=== PATIENT | female | born 1945 | race Caucasian/White ===

== ENCOUNTER 2018-08-30 07:14 | Day surgery (SDC) | payer MEDICARE, BC ==
[2018-08-27 15:19] VITALS: BMI 24.8
--- NOTE | 2018-08-30 10:04 | RAD ---
LUMBAR SPINE 2 VIEWS: HISTORY: M43.16, spondylolisthesis. COMPARISON: Lumbar spine radiographs from 2016. FINDINGS: Incomplete evaluation dorsal column stimulator. No acute fracture. In the neutral position, there is 5 mm L3 over L4 and 3 mm L4 on L5 anterolisthesis. No significant translation with flexion or extension. Mild dextroscoliosis of the thoracolumbar spine. Multilevel degenerative disk space height loss. Kathleen mbosacral transitional vertebrae. IMPRESSION: No significant translation with flexion or extension. POS: [facility]
--- NOTE | 2018-08-30 10:08 | RAD ---
EXAM: XR Myelogram Lumbar Spine PROVIDED CLINICAL HISTORY: Low back pain. Spondylolisthesis. Lumbar radiculopathy COMPARISON: None Fluoroscopy: Fluoroscopy time: 0.5 minutes, total dose: 43.82 microGy meter squared. TECHNIQUE: The procedure including the risks and complications were explained to the patient, and informed conse nt was obtained. The patient was placed on the fluoroscopy table in the prone position. An area overlying the L4-5 level was marked, and then the area was meticulously prepped and draped in usual s terile fashion. Skin and subcutaneous tissues were infiltrated with buffered 1% lidocaine for local anesthesia. A 22-gauge spinal needle was then advanced into the thecal sac. The inner stylette was removed with a return of clear cerebrospinal fluid. Approximately 8 mL of Isovue m-200 was then instilled into the thecal sac. The inner stylette was replaced, and the needle was removed. Patient was transported to CT for CT scan of the lumbar spine post myelogram. A dry sterile dressing was placed at puncture site. The patient tolerated the procedure well and without immediate complication. IMPRESSION: Technically successful lumbar myelogram with puncture at the L4-5 level.
--- NOTE | 2018-08-30 11:24 | CT ---
CT lumbar spine post myelogram: HISTORY: Low back pain and radiculopathy. Degenerative disc disease. History of prior lumbar surgery. COMPARISON: CT post myelogram on 07/24/2014 FINDINGS: There is an incompletely imaged large hypodense lesion inferior pole left kidney. Where visualized, t his hypodense cystic lesion measures 5.7 cm. This hypodense lesion was visualized on prior study in 2015 but is larger in size on today's examination. Measurement obtained on prior exam was 4.6 cm. Whi le this does demonstrate fluid attenuation on unenhanced imaging, this is incompletely imaged for adequate evaluation. Postcholecystectomy changes are noted. Vascular calcifications are seen in the abdominal aorta and involving the iliac arteries. A dorsal column stimulator device is again noted in place entering the thecal sac at the T12-L1 and L 1-2 levels. The tip of the dorsal column stimulator lead is at the level of the T10 vertebral body. Conus medullaris terminates at the T12-L1 level. Laminectomy defects are now present extending from the L3-3-2 body of the L5-S1 level. Grade 1 anterolisthesis of L3 on L4 and L4 on L5 is again present with degrees of listhesis each brennan uring approximately 3 mm. The vertebral body heights are within normal limits. Vacuum phenomenon is seen in the L2-3, L3-4, and L4-5 intervertebral disc with loss of intervertebral disc height at these levels. L1-2: Facet hypertrophic changes are present at this level. This does result in mild mass effect on t he posterior lateral aspect of the thecal sac greater on the left. No significant disc bulge or disc herniation is present. Neural foramina are patent. L2-3: There is a disc osteophyte complex present with mild extrusion of disc material superiorly and inferiorly. Facet hypertrophic changes are present at this level. Findings result in moderate narrowing of the central spinal canal. The right neural foramen is patent, but there is moderate to s evere left-sided neural foraminal narrowing primarily related to disc osteophyte complex laterally. Findings at this level have progressed from prior exam in 2015. L3-4: There is prominent loss of intervertebral disc height. There is grade 1 anterolisthesis at this level with disc osteophyte complex present which is not significantly changed when compared to the prior study. This results in mild flattening of the anterior aspect of the thecal sac. There is moder ate bilateral neural foraminal narrowing. Laminectomy defect is seen posteriorly with low-density material seen posterior laminectomy defect probably to mild scarring. L4-5: Laminectomy defect is present at this level. There is a mild disc osteophyte complex similar to the prior exam. The degree of central canal narrowing is less pronounced. There is moderate bilateral neural foraminal narrowing greater on the right. There is focal enlargement of the right L4 nerve root in the subarticular zone just prior to exiting the thecal sac. L5-S1: Laminectomy defect is seen posteriorly. Central spinal canal and left neural foramen are paten t. There is mild right-sided neural foraminal narrowing. IMPRESSION: 1. Postsurgical and degenerative changes of the lumbar spine. 2. Disc osteophyte complex resulting in moderate narrowing of the central spinal canal at the L2-3 le tisha which has progressed when compared to the prior exam. In addition, there is moderate to severe left-sided neural foraminal narrowing. 3. Moderate bilateral neural foraminal narrowing at the L3-4 and L4-5 levels. 4. Focal enlargement of the right L4 nerve root in the subarticular zone on the right. 5. Incompletely imaged cystic lesion inferior pole left kidney which is larger in size compared to [facility] in 2015. This probably represents enlargement of a renal cyst, but follow-up renal sonogram is recommended due to incomplete visualization.
== END 2018-08-30 10:20 | disposition home or self-care (01) ==
LOC: RAD 07:14
PROVIDERS: ATTEND Specialist
DX: M48.061 Spinal stenosis, lumbar region without neurogenic claudication (principal); M48.07 Spinal stenosis, lumbosacral region; M47.26 Other spondylosis with radiculopathy, lumbar region; M43.16 Spondylolisthesis, lumbar region; M51.16 Intervertebral disc disorders with radiculopathy, lumbar region; M96.1 Postlaminectomy syndrome, not elsewhere classified; M46.1 Sacroiliitis, not elsewhere classified; N28.1 Cyst of kidney, acquired; I10 Essential (primary) hypertension; M06.9 Rheumatoid arthritis, unspecified; Z98.890 Other specified postprocedural states; Z88.6 Allergy status to analgesic agent; Z88.8 Allergy status to other drugs, medicaments and biological substances; Z88.5 Allergy status to narcotic agent; Z79.82 Long term (current) use of aspirin; Z79.1 Long term (current) use of non-steroidal anti-inflammatories (NSAID); Z79.899 Other long term (current) drug therapy
CPT/HCPCS: 62304; 72100; 72132

== ENCOUNTER 2019-04-07 13:42 | Outpatient (CLI) | payer MEDICARE, BC ==
--- NOTE | 2019-04-07 14:44 | RAD ---
LEFT HIP 2 VIEWS: HISTORY: Post laminectomy syndrome. Left hip pain. FINDINGS: Very mild degenerative change at the femoral head. Femoral head contour is normal. No fracture. No acute osseous abnormality. IMPRESSION: Minimal degenerative change at the left hip. No acute finding. POS: [facility]
== END 2019-04-07 13:43 | disposition home or self-care (01) ==
LOC: RAD 13:42
PROVIDERS: ATTEND Nurse Practitioner Family
DX: M25.552 Pain in left hip (principal); M96.1 Postlaminectomy syndrome, not elsewhere classified; M16.12 Unilateral primary osteoarthritis, left hip

== ENCOUNTER 2019-09-02 06:50 | Outpatient (CLI) | payer MEDICARE, BC, OTHER ==
[2019-09-03 11:34] LABS: SARS-CoV-2 MS2 Positive; SARS-CoV-2 N Gene Negative; SARS-CoV-2 S Gene Negative; SARS-CoV-2 orf1ab Negative
== END 2019-09-02 06:51 | disposition home or self-care (01) ==
LOC: LABBT 06:50
PROVIDERS: ATTEND Specialist
DX: Z01.812 Encounter for preprocedural laboratory examination (principal); Z11.59 Encounter for screening for other viral diseases; M96.1 Postlaminectomy syndrome, not elsewhere classified; M51.16 Intervertebral disc disorders with radiculopathy, lumbar region; G89.29 Other chronic pain
CPT/HCPCS: 87635; U0003

== ENCOUNTER 2019-09-06 12:01 | Day surgery (SDC) | payer MEDICARE, BC ==
[2019-09-01 10:34] VITALS: BMI 23.0
[~2019-09-06 12:01] MED LIST: EPHEDRINE 25 MG/5 ML SYRINGE ONE; PROPOFOL 200 MG/20 ML VIAL ONE
[2019-09-06] MEDS ORDERED: Sodium Chloride 0.9% 100 ML ONE (13:03)
[2019-09-06] MEDS ORDERED: CEFAZOLIN 1 GM VIAL ONE (13:03)
[2019-09-06] MEDS ORDERED: Lidocaine 1% w/Epinephrine 1:100K 20 ML VIAL ONE (14:36)
[2019-09-06] MEDS ORDERED: Bupivacaine PF 0.5% 30 ML VIAL ONE (14:36)
[2019-09-06] MEDS ORDERED: Propofol 500 MG/50 ML VIAL ONE (14:41)
[2019-09-06] MEDS ORDERED: Fentanyl 100 MCG/2 ML VIAL ONE (14:41)
[2019-09-06] MEDS ORDERED: Midazolam HCl 2 mg/2 ml Vial ONE ×2 (14:52→15:08)
[2019-09-06] MEDS ORDERED: Morphine 10 MG/ML VIAL ONE (15:08)
[2019-09-06] MEDS ORDERED: Sodium Chloride 0.9% 20 ML ONE (15:52)
--- NOTE | 2019-09-06 17:04 | RAD ---
THORACIC SPINE TWO VIEWS: 09/06/19 HISTORY: Dorsal column stimulator placement. FINDINGS/IMPRESSION: Flour spot fluoroscopic intraoperative images of the thoracic spine demonstrates placement of dorsal column stimulator leads superiorly most likely at T9 and T10 levels. POS: [facility]
--- NOTE | 2019-09-07 08:03 | OP ---
DATE OF PROCEDURE: 09/06/2019 PREOPERATIVE DIAGNOSES: 1. Post-laminectomy syndrome. 2. Chronic pain syndrome. 3. Lumbar radiculopathy. POSTOPERATIVE DIAGNOSES: 1. Post-laminectomy syndrome. 2. Chronic pain syndrome. 3. Lumbar radiculopathy. PROCEDURES PERFORMED: 1. SCS generator replacement. 2. SCS lead replacement x2. SPECIMENS REMOVED: 1. SCS generator, intact, Nevro. 2. SCS leads x2, intact. 3. SCS anchors x2, intact. ESTIMATED BLOOD LOSS: Minimal. DESCRIPTION OF PROCEDURE: The patient was taken to the procedure room and placed prone on the procedure room table. A time-out was performed. The back was prepped with ChloraPrep, and sterile drapes were applied. We used fluoroscopy to locate the existing anchors. We then anesthetized the skin with 0.5% Marcaine and made a vertical incision over the existing incision to expose the anchors. This was blunt dissected out. Scar tissue was removed. The anchors were released from the fascia, and the leads were pulled out of the epidural space intact. We then used the Marcaine to anesthetize the existing pocket scar. We made an incision and blunt dissected this down to the pocket. The battery was removed. The leads were disconnected and pulled through and discarded. The battery was also removed. Anchors were also removed. At this point, we cauterized the existing pocket and collapsed it using Vicryl suture. We blunt dissected this down the Suzan fascia approximately 1 cm deep. We then dissected this inferior and superior to form a new pocket. We used Surgicel for anticoagulation. The 14-gauge supplied Touhy needle was used in the vertical incision at a paramedian technique to engage into the T12-L1 ligament. Loss of resistance to air was used to achieve access to the epidural space. The 8-contact electrode was then inserted into the epidural space and threaded up the epidural space using live fluoroscopy. The middle lead was placed at the top of T8. We then performed the same exact technique on the contralateral side and threaded an 8-contact lead up on the left side of the midline lead to the top of T9. Stimulation was performed with the patient awake and the patient noted paresthesia in all pain areas. We then removed the needle taking care not to move the leads. Anchors were placed over these leads, and 2-0 silk suture was used to fixate the anchors to fascia. We tugged on these leads under live fluoroscopy and they were not moving. We used a tunneling device to make a tunnel between the 2 pockets. Leads were inserted through this tunnel and brought to the battery pocket. These were connected to the battery and torqued down to fixate them to the battery. Impedances were checked, which were all good. The battery was slipped into the pocket. We used 2-0 Vicryl sutures in a horizontal mattress to approximate the deep fascial layer. We then used 2-0 Vicryl suture in an interrupted fashion to approximate the superficial fascial layer and then used 3-0 Rapide as a subcuticular stitch on the skin layer. We then used Dermabond as an occlusive dressing, then once that was dry, we put sterile 4x4s on top and Medipore tape. The patient was taken to Day Stay under stable condition without any apparent complications noted at this time. Job ID: [id number]
== END 2019-09-06 18:15 | disposition home or self-care (01) ==
LOC: SDC 12:01
PROVIDERS: ATTEND Specialist
PROC: 0JPT0MZ Removal of Stimulator Generator from Trunk Subcutaneous Tissue and Fascia, Open Approach (ICD-10-PCS; principal; 2019-09-06)
PROC: 0JH70DZ Insertion of Multiple Array Stimulator Generator into Back Subcutaneous Tissue and Fascia, Open Approach (ICD-10-PCS; 2019-09-06)
PROC: 00WU3MZ Revision of Neurostimulator Lead in Spinal Canal, Percutaneous Approach (ICD-10-PCS; 2019-09-06)
DX: M96.1 Postlaminectomy syndrome, not elsewhere classified (principal); G89.4 Chronic pain syndrome; M54.16 Radiculopathy, lumbar region; I10 Essential (primary) hypertension; E03.9 Hypothyroidism, unspecified; K21.9 Gastro-esophageal reflux disease without esophagitis; G47.30 Sleep apnea, unspecified; G43.909 Migraine, unspecified, not intractable, without status migrainosus; F17.210 Nicotine dependence, cigarettes, uncomplicated; F32.9 Major depressive disorder, single episode, unspecified; Z79.52 Long term (current) use of systemic steroids; Z79.82 Long term (current) use of aspirin; Z79.899 Other long term (current) drug therapy; Z88.5 Allergy status to narcotic agent; Z88.8 Allergy status to other drugs, medicaments and biological substances
CPT/HCPCS: 72070; 76000; J0690; J2250; J2270; J2704; J3010; J3490; L8679; S0020

== ENCOUNTER 2020-01-26 07:05 | Outpatient (CLI) | payer MEDICARE, BC ==
[2020-01-26 16:19] LABS: Hemoglobin 12.9 g/dL (12.0-16.0); Mean Corpuscular HGB CONC 33.7 G/DL (32.0-36.0); Mean Corpuscular Hemoglobin 35.7 PG (27.0-33.0); Mean Corpuscular Volume 106.1 fl (80.0-100.0); Mean Platelet Volume 9.8 fl (7.4-10.4); Platelet Count 207 10x3/uL (130-400); RBC Distribution Width 14.9 % (11.5-14.5); Red Blood Cell (RBC) Count 3.61 10x6/uL (3.90-5.20); White Blood Cell (WBC) Count 10.9 10x3/uL (4.5-11.0)
[2020-01-26 17:50] LABS: Anion Gap 13 mmol/L (10-20); BUN (Urea Nitrogen) 22 mg/dL (9.8-20.1); Calc. Creatinine Clearance 0 mL/min (70-130); Calcium 9.1 mg/dL (7.8-10.44); Carbon Dioxide 27 mmol/L (23-31); Chloride 101 mmol/L (98-107); Estimated GFR-MDRD 68; Glucose 121 mg/dL (83-110); Potassium 4.3 mmol/L (3.5-5.1); Sodium 137 mmol/L (136-145)
[2020-01-26 19:13] LABS: PTT 24.5 sec (22.0-33.0); Prothrombin Time 10.7 sec (9.5-12.1)
[2020-01-27 14:36] LABS: SARS-CoV-2 MS2 Positive; SARS-CoV-2 N Gene Negative; SARS-CoV-2 S Gene Negative; SARS-CoV-2 by NAA Not Detected (NotDetected); SARS-CoV-2 orf1ab Negative
--- NOTE | 2020-01-31 06:55 | EKG ---
Test Reason : PREOP Blood Pressure : / mmHG Vent. Rate : 062 BPM Atrial Rate : 062 BPM P-R Int : 160 ms QRS Dur : 108 ms QT Int : 382 ms P-R-T Axes : 068 020 046 degrees QTc Int : 387 ms Normal sinus rhythm Right bundle branch block Abnormal ECG No previous ECGs available Confirmed by DIXON OVIEDO MD ([id number]) on 01/31/2020 6:55:00 AM Referred By: NUHA Confirmed By:DIXON OVIEDO MD
== END 2020-01-26 07:06 | disposition home or self-care (01) ==
LOC: LABBT 07:05
PROVIDERS: ATTEND Surgery
DX: Z01.818 Encounter for other preprocedural examination (principal); M51.16 Intervertebral disc disorders with radiculopathy, lumbar region; Z20.828 Contact with and (suspected) exposure to other viral communicable diseases
CPT/HCPCS: 80048; 85027; 85610; 85730; 93005; U0003; 87635; 93010

== ENCOUNTER 2020-01-31 08:05 | Day surgery (SDC) | payer MEDICARE, BC ==
[2020-01-30 15:09] VITALS: BMI 22.8
[2020-01-31] MEDS ORDERED: Fentanyl 100 MCG/2 ML VIAL ONE (09:00)
[2020-01-31] MEDS ORDERED: Thrombin 5000 UNITS/5 ML VIAL ONE (09:18)
[2020-01-31] MEDS ORDERED: HYDROmorphone 2 MG/ML VIAL ONE (09:23)
[2020-01-31] MEDS ORDERED: ePHEDrine 50 MG/ML VIAL ONE (10:35)
[2020-01-31] MEDS ORDERED: PHENYLEPHRINE-NS 100 MCG/ML 10 ML SYRINGE ONE (10:35)
[2020-01-31] MEDS ORDERED: Ondansetron PF 4 MG/2 ML Vial ONE (10:35)
[2020-01-31] MEDS ORDERED: Rocuronium Bromide 10 MG/ML (10ML VIAL) ONE (10:35)
[2020-01-31] MEDS ORDERED: Glycopyrrolate 0.2 MG/ML 5 ML SYRINGE ONE (10:35)
[2020-01-31] MEDS ORDERED: Lidocaine 1% PF 5 ML VIAL ONE (10:35)
[2020-01-31] MEDS ORDERED: PROPOFOL 200 MG/20 ML VIAL ONE (10:35)
[2020-01-31] MEDS ORDERED: Bisacodyl 10 MG SUPP PR PRN (11:28)
[2020-01-31] MEDS ORDERED: tiZANidine HCl 4 MG TAB PO PRN (11:28)
[2020-01-31] MEDS ORDERED: Ondansetron PF 4 MG/2 ML Vial IVP PRN (11:28)
[2020-01-31] MEDS ORDERED: Morphine 2 MG/ML VIAL SLOW IVP PRN (11:28)
[2020-01-31] MEDS ORDERED: Acetaminophen 325 MG TAB PO PRN (11:28)
[2020-01-31] MEDS ORDERED: Acetaminophen/Codeine 30-300mg Tablet PO PRN (11:28)
[2020-01-31] MEDS ORDERED: Mag-Al 1200 mg/1200 mg/30 ML UDCUP PO PRN (11:28)
[2020-01-31] MEDS ORDERED: traMADol HCl 50 MG TAB PO PRN (11:28)
[2020-01-31] MEDS ORDERED: HYDROcodone/Acetaminophen 7.5/325 mg Tablet PO PRN (11:28)
[2020-01-31] MEDS ORDERED: Milk Of Magnesia 30 ML UDCUP PO PRN (11:28)
[2020-01-31] MEDS ORDERED: HYPROMELLOSE R EYE PRN (11:30)
[2020-01-31] MEDS ORDERED: Loperamide HCl 2 MG CAP PO PRN (11:30)
[2020-01-31] MEDS ORDERED: [UNRECOGNIZED DRUG - OTHER] R EYE SCH (11:30)
[2020-01-31] MEDS ORDERED: DEXTRAN R EYE PRN (11:30)
[2020-01-31] MEDS ORDERED: [UNRECOGNIZED DRUG - OTHER] R EYE PRN (11:30)
[2020-01-31] MEDS ORDERED: PEG R EYE SCH (11:30)
[2020-01-31] MEDS ORDERED: CARBOXYMETHYLCELLULOSE SODIUM R EYE PRN (11:30)
[2020-01-31] MEDS ORDERED: Sodium Chloride 0.9% 1,000 ML IV SCH (11:30)
[2020-01-31] MEDS ORDERED: Furosemide 20 MG TAB PO PRN (11:30)
[2020-01-31] MEDS ORDERED: PROPYLENE GLYCOL R EYE SCH (11:30)
[2020-01-31] MEDS ORDERED: HYDROmorphone 0.5 MG/0.5 ML SYRINGE ONE (11:54)
[2020-01-31] MEDS ORDERED: Gabapentin 400 MG CAP PO SCH (13:00)
[2020-01-31] MEDS ORDERED: tiZANidine HCl 4 MG TAB ONE (13:32)
[2020-01-31] MEDS ORDERED: Hydrocodone-Acetamin 15 ML UDCUP ONE (13:33)
[2020-01-31] MEDS ORDERED: CEFAZOLIN 2 GM in Premix Bag 1 BAG IVPB SCH (17:00)
[2020-01-31] MEDS ORDERED: Atorvastatin Calcium 10 MG TAB PO SCH (21:00)
[2020-01-31] MEDS ORDERED: Multivit, Therapeutic 1 TAB PO SCH (21:00)
[2020-01-31] MEDS ORDERED: guaiFENesin ER 600 MG TAB PO SCH (21:00)
[2020-01-31] MEDS ORDERED: Estradiol 1 MG TAB PO SCH (21:00)
--- NOTE | 2020-02-01 05:39 | OP ---
DATE OF PROCEDURE: 01/31/2020 LOCATION: OR 11. TRAFFIC COUNTER: Melissa Kaminski PA-C PREPROCEDURE DIAGNOSIS: Low back and left leg pain with left L2 and left L3 radiculopathy with lateral and far-lateral disk extrusion. POSTPROCEDURE DIAGNOSIS: Low back and left leg pain with left L2 and left L3 radiculopathy with lateral and far-lateral disk extrusion. PROCEDURES PERFORMED: 1. Left L2-L3 revision hemilaminotomy and foraminotomy with decompression of the traversing left L3 nerve root. 2. Left L2-L3 trans-facet diskectomy for lateral and far-lateral diskectomy. 3. Decompression of the exiting left L2 nerve root. 4. Use of operative microscope for microdissection. DESCRIPTION OF PROCEDURE: After informed consent was obtained from the patient, the patient was brought to the OR. Proper patient, pause, and identification were carried out. She was placed under excellent general endotracheal anesthesia and positioned prone on the OR table. The prior L2-L3 wound was identified. This area was sterilely cleansed, prepared, and draped. Proper patient, pause, and identification were carried out. The wound was then opened with combination of sharp, monopolar, and blunt dissection. We then proceeded to identify the left L2-L3 facet complex, the left L2 pars, and the right L3 pedicle. Localization film confirmed our area of interest. We then performed with the use of the operative microscope a revision left L2-L3 hemilaminotomy and foraminotomy with decompression of traversing left L3 nerve root. I then turned my attention to the exiting left L2 nerve root and lateral and far-lateral disk material was identified and removed in its entirety for complete decompression of the exiting left L2 nerve root and its foramen and extraforaminally. Copious irrigation occurred throughout as did maximizing hemostasis. The wound was then closed in anatomic layers following sprinkling of vancomycin powder. The patient then emerged from anesthesia and it was careful to protect spinal cord stimulator leads. Job ID: [id number]
[2020-02-01] MEDS ORDERED: Levothyroxine Sodium 75 MCG TAB PO SCH (06:00)
[2020-02-01] MEDS ORDERED: Lisinopril/Hydrochlorothiazide 20/25 mg Tablet PO SCH (09:00)
[2020-02-01] MEDS ORDERED: [UNRECOGNIZED DRUG - OTHER] PO SCH (09:00)
[2020-02-01] MEDS ORDERED: predniSONE 5 MG TAB PO SCH (09:00)
[2020-02-01] MEDS ORDERED: Nebivolol HCl 5 MG TAB PO SCH (09:00)
[2020-02-01] MEDS ORDERED: Calcium Carbonate 600 MG + Vit D TAB PO SCH (09:00)
[2020-02-01] MEDS ORDERED: Ascorbic Acid 500 mg Chewable Tablet PO SCH (09:00)
[2020-02-01] MEDS ORDERED: Folic Acid 1 MG TAB PO SCH (09:00)
[2020-02-01] MEDS ORDERED: FLUoxetine HCl 20 MG CAP PO SCH (09:00)
[2020-02-01] MEDS ORDERED: Potassium Chloride 20 MEQ TAB PO SCH (09:00)
[2020-02-01] MEDS ORDERED: Cholecalciferol 1,000 UNITS (25 MCG) TAB PO SCH (09:00)
[2020-02-01] MEDS ORDERED: HYDROCODONE BITARTRATE 40 MG PO SCH (09:00)
== END 2020-01-31 16:25 | disposition home or self-care (01) ==
LOC: SDC 08:05
PROVIDERS: ATTEND Surgery
PROC: 01NB0ZZ Release Lumbar Nerve, Open Approach (ICD-10-PCS; principal; 2020-01-31)
DX: M51.16 Intervertebral disc disorders with radiculopathy, lumbar region (principal); G47.33 Obstructive sleep apnea (adult) (pediatric); I10 Essential (primary) hypertension; E03.9 Hypothyroidism, unspecified; K21.9 Gastro-esophageal reflux disease without esophagitis; Z79.82 Long term (current) use of aspirin; Z79.899 Other long term (current) drug therapy; Z88.8 Allergy status to other drugs, medicaments and biological substances
CPT/HCPCS: 36416; 76000; J0690; J1170; J2405; J2704; J3010; J3370; J3490

== ENCOUNTER 2021-03-22 08:38 | Outpatient (CLI) | payer MEDICARE, BC | END 2021-03-22 08:39 | disposition home or self-care (01) | LOC: CT 08:38 | PROVIDERS: ATTEND Surgery | DX: M47.26 Other spondylosis with radiculopathy, lumbar region (principal); M41.9 Scoliosis, unspecified; Z98.890 Other specified postprocedural states | CPT/HCPCS: 72110; 72131 ==

== ENCOUNTER 2021-04-25 09:53 | Outpatient (CLI) | payer MEDICARE, BC ==
[2021-04-25 11:30] LABS: Mean Corpuscular HGB CONC 31.9 g/dL (32.0-36.0); Mean Corpuscular Hemoglobin 34.2 pg (27.0-33.0); Mean Corpuscular Volume 107.4 fl (81.6-98.3); Mean Platelet Volume 9.6 fl (7.4-10.4); Platelet Count 216 10x3/uL (150-450); RBC Distribution Width 14.5 % (11.5-14.5); White Blood Cell (WBC) Count 12.4 10x3/uL (3.5-10.5)
[2021-04-25 11:38] LABS: PTT 22.7 sec (22.0-33.0); Prothrombin Time 10.8 sec (9.5-12.1)
[2021-04-25 11:44] LABS: Anion Gap 13 mmol/L (10-20); BUN (Urea Nitrogen) 22 mg/dL (9.8-20.1); Calc. Creatinine Clearance 0 mL/min (70-130); Calcium 9.5 mg/dL (7.8-10.44); Carbon Dioxide 30 mmol/L (23-31); Chloride 103 mmol/L (98-107); Glucose 103 mg/dL (83-110); Potassium 3.8 mmol/L (3.5-5.1); Sodium 142 mmol/L (136-145)
[2021-04-25 16:48] LABS: SARS-CoV-2 PCR by NAA Not Detected (NotDetected)
== END 2021-04-25 09:54 | disposition home or self-care (01) ==
LOC: LABBT 09:53
PROVIDERS: ATTEND Surgery
DX: Z01.818 Encounter for other preprocedural examination (principal); M48.062 Spinal stenosis, lumbar region with neurogenic claudication; M54.16 Radiculopathy, lumbar region; M41.9 Scoliosis, unspecified; Z20.822 Contact with and (suspected) exposure to COVID-19
CPT/HCPCS: 80048; 85027; 85610; 85730; 86850; 86900; 86901; 93005; U0003; U0005; 93010

== ENCOUNTER 2021-04-30 07:55 | Inpatient (IN) | payer MEDICARE, BC ==
[2021-04-24 15:36] VITALS: BMI 24.7
[2021-04-25 11:30] LABS: Mean Corpuscular HGB CONC 31.9 g/dL (32.0-36.0); Mean Corpuscular Hemoglobin 34.2 pg (27.0-33.0); Mean Corpuscular Volume 107.4 fl (81.6-98.3); Mean Platelet Volume 9.6 fl (7.4-10.4); Platelet Count 216 10x3/uL (150-450); RBC Distribution Width 14.5 % (11.5-14.5); White Blood Cell (WBC) Count 12.4 10x3/uL (3.5-10.5)
[2021-04-25 11:38] LABS: PTT 22.7 sec (22.0-33.0); Prothrombin Time 10.8 sec (9.5-12.1)
[2021-04-25 11:44] LABS: Anion Gap 13 mmol/L (10-20); BUN (Urea Nitrogen) 22 mg/dL (9.8-20.1); Calc. Creatinine Clearance 0 mL/min (70-130); Calcium 9.5 mg/dL (7.8-10.44); Carbon Dioxide 30 mmol/L (23-31); Chloride 103 mmol/L (98-107); Glucose 103 mg/dL (83-110); Potassium 3.8 mmol/L (3.5-5.1); Sodium 142 mmol/L (136-145)
[2021-04-25 16:48] LABS: SARS-CoV-2 PCR by NAA Not Detected (NotDetected)
[2021-04-30] MEDS ORDERED: Thrombin 5000 UNITS/5 ML VIAL ONE ×2 (09:42→13:47)
[2021-04-30] MEDS ORDERED: Famotidine/PF 20 mg/2ml Vial ONE (09:53)
[2021-04-30] MEDS ORDERED: Fentanyl 250 MCG/5 ML VIAL ONE (10:08)
[2021-04-30] MEDS ORDERED: Rocuronium Bromide 10 MG/ML (10ML VIAL) ONE (10:25)
[2021-04-30] MEDS ORDERED: PROPOFOL 200 MG/20 ML VIAL ONE (10:25)
[2021-04-30] MEDS ORDERED: Lidocaine 1% PF 5 ML VIAL ONE (10:25)
[2021-04-30] MEDS ORDERED: ePHEDrine 50 MG/ML VIAL ONE (10:25)
[2021-04-30] MEDS ORDERED: Ondansetron PF 4 MG/2 ML Vial ONE (10:25)
[2021-04-30] MEDS ORDERED: PHENYLEPHRINE-NS 100 MCG/ML 10 ML SYRINGE ONE (10:25)
[2021-04-30] MEDS ORDERED: Morphine Sulfate 2 MG/ML SYRINGE SLOW IVP PRN (12:52)
[2021-04-30] MEDS ORDERED: Promethazine HCl 25 MG/ML VIAL IM PRN (12:52)
[2021-04-30] MEDS ORDERED: Promethazine HCl 25 MG/ML VIAL IVPB PRN (12:52)
[2021-04-30] MEDS ORDERED: Ondansetron HCl/PF 4 MG/2 ML Vial IVP PRN (12:52)
[2021-04-30] MEDS ORDERED: PACU-Morphine 4MG/ML VIAL SLOW IVP PRN (12:52)
[2021-04-30] MEDS ORDERED: SUGAMMADEX SODIUM 200 MG/2 ML VIAL ONE (13:36)
[2021-04-30] MEDS ORDERED: CEFAZOLIN 1 GM VIAL ONE (14:24)
[2021-04-30] MEDS ORDERED: Morphine 10 MG/ML VIAL ONE ×2 (14:28→15:06)
[2021-04-30] MEDS ORDERED: traMADol HCl 50 MG TAB PO PRN (15:11)
[2021-04-30] MEDS ORDERED: Acetaminophen/Codeine 30-300mg Tablet PO PRN (15:11)
[2021-04-30] MEDS ORDERED: HYDROcodone/Acetaminophen 7.5/325 mg Tablet PO PRN (15:11)
[2021-04-30] MEDS ORDERED: tiZANidine HCl 4 MG TAB PO PRN (15:25)
[2021-04-30] MEDS ORDERED: Loperamide HCl 2 MG CAP PO PRN (15:27)
[2021-04-30] MEDS ORDERED: [UNRECOGNIZED DRUG - OTHER] EA EYE PRN (15:27)
[2021-04-30] MEDS ORDERED: DEXTRAN EA EYE PRN (15:27)
[2021-04-30] MEDS ORDERED: HYPROMELLOSE EA EYE PRN (15:27)
[2021-04-30] MEDS ORDERED: hydrALAZINE 20 MG/ML VIAL SLOW IVP PRN (15:38)
[2021-04-30] MEDS ORDERED: Morphine 4 MG/ML VIAL ONE (15:39)
[2021-04-30] MEDS ORDERED: Morphine 4 MG/ML VIAL SLOW IVP PRN (16:09)
[2021-04-30] MEDS ORDERED: Artificial Tear Sol 15 ML BOT EA EYE PRN (16:11)
[2021-04-30] MEDS ORDERED: Polyethylene Glycol OPTH DROP 15 ML BOT EA EYE PRN (16:30)
[2021-04-30 16:42] LABS: Hemoglobin 10.8 g/dL (12.0-16.0)
[2021-04-30] MEDS: CEFAZOLIN 2 GM, Admixture Fee 1 EACH in Sodium Chloride 0.9% 100 ML IVPB SCH (18:00)
[2021-04-30] MEDS: Gabapentin 400 MG CAP PO SCH ×2 (18:04→20:47)
[2021-04-30] MEDS: Sodium Chloride 0.9% 1,000 ML IV SCH (19:04)
[2021-04-30] MEDS: Atorvastatin Calcium 10 MG TAB PO SCH (20:46)
[2021-04-30] MEDS: Estradiol 1 MG TAB PO SCH (20:46)
[2021-04-30] MEDS: Multivit, Therapeutic 1 TAB PO SCH (20:47)
[2021-04-30] MEDS: HYDROcodone/Acetaminophen 10/325 mg Tablet PO PRN (20:47)
[2021-04-30] MEDS: guaiFENesin ER 600 MG TAB PO SCH (20:47)
[2021-05-01] MEDS: CEFAZOLIN 2 GM, Admixture Fee 1 EACH in Sodium Chloride 0.9% 100 ML IVPB SCH ×3 (01:30→17:13)
[2021-05-01] MEDS: Sodium Chloride 0.9% 1,000 ML IV SCH ×2 (01:34→20:25)
[2021-05-01] MEDS: Levothyroxine Sodium 75 MCG TAB PO SCH (05:18)
[2021-05-01] MEDS: HYDROcodone/Acetaminophen 10/325 mg Tablet PO PRN ×2 (05:18→15:50)
[2021-05-01 05:25] LABS: #Basophils 0.1 thou/uL (0.0-0.2); #Eosinphils 0.2 thou/uL (0.0-0.7); #Lymphocytes 4.9 thou/uL (1.20-3.40); #Monocytes 1.1 thou/uL (0.11-0.59); #Neutrophils 5.8 thou/uL (1.40-6.50); %Basophils 0.7 % (0.0-1.0); %Eosinophils 1.3 % (0.0-10.0); %Lymphocytes 40.6 % (21.0-51.0); %Monocytes 9.1 % (0.0-10.0); %Neutrophils 48.3 % (42.0-75.0); Hemoglobin 9.8 g/dL (12.0-16.0); Mean Corpuscular HGB CONC 32.2 g/dL (32.0-36.0); Mean Corpuscular Hemoglobin 35.6 pg (27.0-31.0); Platelet Count 173 thou/uL (130-400); RBC Distribution Width 14.1 % (11.5-14.5); Red Blood Cell (RBC) Count 2.75 mill/uL (4.20-5.40); White Blood Cell (WBC) Count 12.1 thou/uL (4.8-10.8)
[2021-05-01 06:03] LABS: Anion Gap 12 mmol/L (10-20); BUN (Urea Nitrogen) 11 mg/dL (9.8-20.1); Calc. Creatinine Clearance 54 mL/min (70-130); Calcium 8.5 mg/dL (7.8-10.44); Carbon Dioxide 28 mmol/L (23-31); Chloride 101 mmol/L (98-107); Glucose 110 mg/dL (83-110); Potassium 3.1 mmol/L (3.5-5.1); Sodium 138 mmol/L (136-145)
[2021-05-01] MEDS ORDERED: Furosemide 20 MG TAB PO PRN (09:00)
[2021-05-01] MEDS ORDERED: Morphine ER 30 MG TAB PO SCH (09:22)
[2021-05-01] MEDS: FLUoxetine HCl 20 MG CAP PO SCH (09:23)
[2021-05-01] MEDS: Potassium Bicarbonate/Cit Ac 20 MEQ TAB PO SCH (09:23)
[2021-05-01] MEDS: predniSONE 5 MG TAB PO SCH (09:23)
[2021-05-01] MEDS: Cholecalciferol 1,000 UNITS (25 MCG) TAB PO SCH (09:23)
[2021-05-01] MEDS: Folic Acid 1 MG TAB PO SCH (09:23)
[2021-05-01] MEDS: Ascorbic Acid 500 mg Chewable Tablet PO SCH (09:23)
[2021-05-01] MEDS: Calcium Carbonate 600 MG + Vit D TAB PO SCH (09:23)
[2021-05-01] MEDS ORDERED: Polyethylene Glycol 3350 17 GM Packet PO PRN (09:25)
[2021-05-01] MEDS: Floranex 1 GM Packet PO SCH (09:34)
[2021-05-01] MEDS ORDERED: HYDROcodone/Acetaminophen 10/325 mg Tablet PO PRN (09:39)
[2021-05-01] MEDS: Gabapentin 400 MG CAP PO SCH ×3 (10:23→20:24)
[2021-05-01] MEDS: Nebivolol HCl 5 MG TAB PO SCH (10:24)
[2021-05-01] MEDS: Lisinopril/Hydrochlorothiazide 20/25 mg Tablet PO SCH (10:24)
[2021-05-01 12:32] LABS: Bilirubin Negative (Negative); Blood, Urine Negative (Negative); Clarity Clear (Clear); Glucose, Urine (Dipstick) Normal (Negative); Ketone, Urine Negative (Negative); Leukocyte 75 Leu/uL (Negative); Nitrite Negative (Negative); Protein, Urine (Dipstick) Negative (Neg-Trace); RBC/HPF 0-3 HPF (0-3); Specific Gravity, Urine 1.005 (1.002-1.036); Squamous Epithelial None Seen HPF (0-3); Urobilinogen Normal mg/dL (Less than 2); WBC/HPF 0-3 HPF (0-3)
[2021-05-01 12:33] LABS: Bacteria/HPF 1+ HPF (None Seen)
[2021-05-01] MEDS: Morphine 4 MG/ML VIAL SLOW IVP PRN ×2 (14:07→20:25)
[2021-05-01] MEDS: Diazepam 5 MG TAB PO PRN (14:59)
[2021-05-01] MEDS: Acetaminophen 325 MG TAB PO PRN (17:11)
[2021-05-01] MEDS: guaiFENesin ER 600 MG TAB PO SCH (20:24)
[2021-05-01] MEDS: Atorvastatin Calcium 10 MG TAB PO SCH (20:24)
[2021-05-01] MEDS: Multivit, Therapeutic 1 TAB PO SCH (20:24)
[2021-05-01] MEDS: Estradiol 1 MG TAB PO SCH (20:24)
[2021-05-01] MEDS: Docusate 100 MG CAP PO SCH (20:24)
[2021-05-02] MEDS: Morphine 4 MG/ML VIAL SLOW IVP PRN ×2 (03:00→09:03)
[2021-05-02] MEDS: HYDROcodone/Acetaminophen 10/325 mg Tablet PO PRN ×3 (03:00→19:12)
[2021-05-02] MEDS: CEFAZOLIN 2 GM, Admixture Fee 1 EACH in Sodium Chloride 0.9% 100 ML IVPB SCH ×2 (03:22→09:03)
[2021-05-02] MEDS: Levothyroxine Sodium 75 MCG TAB PO SCH (05:40)
[2021-05-02] MEDS: Diazepam 5 MG TAB PO PRN ×2 (05:40→20:40)
[2021-05-02] MEDS: Docusate 100 MG CAP PO SCH ×2 (09:01→20:40)
[2021-05-02] MEDS: Gabapentin 400 MG CAP PO SCH ×3 (09:01→20:40)
[2021-05-02] MEDS: Cholecalciferol 1,000 UNITS (25 MCG) TAB PO SCH (09:01)
[2021-05-02] MEDS: Acetaminophen 325 MG TAB PO PRN (09:02)
[2021-05-02] MEDS: Folic Acid 1 MG TAB PO SCH (09:02)
[2021-05-02] MEDS: predniSONE 5 MG TAB PO SCH (09:02)
[2021-05-02] MEDS: Calcium Carbonate 600 MG + Vit D TAB PO SCH (09:02)
[2021-05-02] MEDS: Ascorbic Acid 500 mg Chewable Tablet PO SCH (09:02)
[2021-05-02] MEDS: Floranex 1 GM Packet PO SCH (09:03)
[2021-05-02] MEDS: FLUoxetine HCl 20 MG CAP PO SCH (09:03)
[2021-05-02] MEDS: Potassium Bicarbonate/Cit Ac 20 MEQ TAB PO SCH (09:03)
[2021-05-02 10:28] LABS: Hemoglobin 12.1 g/dL (12.0-16.0)
[2021-05-02] MEDS: Sodium Chloride 0.9% 1,000 ML IV SCH (10:36)
[2021-05-02] MEDS: Lisinopril/Hydrochlorothiazide 20/25 mg Tablet PO SCH (10:36)
[2021-05-02] MEDS: Nebivolol HCl 5 MG TAB PO SCH (10:36)
[2021-05-02] MEDS: Multivit, Therapeutic 1 TAB PO SCH (20:40)
[2021-05-02] MEDS: Atorvastatin Calcium 10 MG TAB PO SCH (20:40)
[2021-05-02] MEDS: Estradiol 1 MG TAB PO SCH (20:40)
[2021-05-02] MEDS: guaiFENesin ER 600 MG TAB PO SCH (20:40)
[2021-05-03] MEDS: HYDROcodone/Acetaminophen 10/325 mg Tablet PO PRN ×3 (01:13→16:01)
[2021-05-03] MEDS: Sodium Chloride 0.9% 1,000 ML IV SCH ×2 (01:14→09:32)
[2021-05-03] MEDS: Morphine 4 MG/ML VIAL SLOW IVP PRN ×2 (03:36→12:00)
[2021-05-03] MEDS: Levothyroxine Sodium 75 MCG TAB PO SCH (05:26)
[2021-05-03] MEDS: Diazepam 5 MG TAB PO PRN ×2 (05:26→20:02)
[2021-05-03] MEDS: Floranex 1 GM Packet PO SCH (08:54)
[2021-05-03] MEDS: Folic Acid 1 MG TAB PO SCH (08:55)
[2021-05-03] MEDS: Docusate 100 MG CAP PO SCH ×2 (08:55→20:02)
[2021-05-03] MEDS: Potassium Bicarbonate/Cit Ac 20 MEQ TAB PO SCH (08:55)
[2021-05-03] MEDS: Lisinopril/Hydrochlorothiazide 20/25 mg Tablet PO SCH (08:55)
[2021-05-03] MEDS: Ascorbic Acid 500 mg Chewable Tablet PO SCH (08:56)
[2021-05-03] MEDS: FLUoxetine HCl 20 MG CAP PO SCH (08:56)
[2021-05-03] MEDS: Nebivolol HCl 5 MG TAB PO SCH (08:56)
[2021-05-03] MEDS: Gabapentin 400 MG CAP PO SCH ×3 (08:56→20:02)
[2021-05-03] MEDS: Cholecalciferol 1,000 UNITS (25 MCG) TAB PO SCH (08:57)
[2021-05-03] MEDS: predniSONE 5 MG TAB PO SCH (08:57)
[2021-05-03] MEDS: Calcium Carbonate 600 MG + Vit D TAB PO SCH (08:57)
[2021-05-03] MEDS: Atorvastatin Calcium 10 MG TAB PO SCH (20:02)
[2021-05-03] MEDS: guaiFENesin ER 600 MG TAB PO SCH (20:02)
[2021-05-03] MEDS: Estradiol 1 MG TAB PO SCH (20:02)
[2021-05-03] MEDS: Multivit, Therapeutic 1 TAB PO SCH (20:02)
[2021-05-03 22:53] VITALS: BP 102/66; TEMP 98.5
[2021-05-04] MEDS ORDERED: HYSINGLA PO SCH (09:00)
== END 2021-05-03 20:45 | DRG 457 ==
LOC: SDC 07:55 → SURG A 16:08 → OBSVTOIN 05-01 09:10
PROVIDERS: ADMIT Surgery; ATTEND Surgery
PROC: 0SG10AJ Fusion of 2 or more Lumbar Vertebral Joints with Interbody Fusion Device, Posterior Approach, Anterior Column, Open Approach (ICD-10-PCS; principal; 2021-05-01)
PROC: 0SB20ZZ Excision of Lumbar Vertebral Disc, Open Approach (ICD-10-PCS; 2021-05-01)
PROC: 01NB0ZZ Release Lumbar Nerve, Open Approach (ICD-10-PCS; 2021-05-01)
PROC: 30233N1 Transfusion of Nonautologous Red Blood Cells into Peripheral Vein, Percutaneous Approach (ICD-10-PCS; 2021-05-01)
DX: M41.87 Other forms of scoliosis, lumbosacral region (principal); D62 Acute posthemorrhagic anemia; G96.09 Other spinal cerebrospinal fluid leak; Z20.822 Contact with and (suspected) exposure to COVID-19; M54.16 Radiculopathy, lumbar region; M48.062 Spinal stenosis, lumbar region with neurogenic claudication; M41.9 Scoliosis, unspecified; G89.29 Other chronic pain; M06.9 Rheumatoid arthritis, unspecified; M45.9 Ankylosing spondylitis of unspecified sites in spine; F17.210 Nicotine dependence, cigarettes, uncomplicated; I95.81 Postprocedural hypotension; Z79.899 Other long term (current) drug therapy; Z88.1 Allergy status to other antibiotic agents; Z88.8 Allergy status to other drugs, medicaments and biological substances; Z79.82 Long term (current) use of aspirin; Z98.890 Other specified postprocedural states; Z82.49 Family history of ischemic heart disease and other diseases of the circulatory system; Z83.49 Family history of other endocrine, nutritional and metabolic diseases
CPT/HCPCS: 36415; 36430; 76000; 80048; 81003; 81015; 85014; 85018; 85025; 85027; 85610; 85730; 86850; 86900; 86901; 93970; 96374; 96375; 96376; C1713; C1768; C1776; G0378; J0690; J2270; J2405; J2704; J3010; J3370; J3490; J7050; J7512; L0639; P9016; S0028; U0003; U0005

== ENCOUNTER 2021-05-13 10:34 | Inpatient (IN) | payer MEDICARE, BC ==
[2021-05-13 11:31] LABS: #Lymphocytes 1.9 thou/uL (1.20-3.40); #Monocytes 1.1 thou/uL (0.11-0.59); #Neutrophils 8.5 thou/uL (1.40-6.50); %Basophils 0.3 % (0.0-1.0); %Eosinophils 0.2 % (0.0-10.0); %Monocytes 9.8 % (0.0-10.0); %Neutrophils 73.7 % (42.0-75.0); Hemoglobin 16.6 g/dL (12.0-16.0); Mean Corpuscular Hemoglobin 34.4 pg (27.0-31.0); Mean Platelet Volume 6.6 fL (7.4-10.4); Platelet Count 372 thou/uL (130-400); RBC Distribution Width 14.4 % (11.5-14.5); Red Blood Cell (RBC) Count 4.83 mill/uL (4.20-5.40); White Blood Cell (WBC) Count 11.6 thou/uL (4.8-10.8)
[2021-05-13 11:35] LABS: ALT (SGPT) 22 U/L (8-55); AST (SGOT) 64 U/L (5-34); Albumin 4.4 g/dL (3.4-4.8); Alkaline Phosphatase 62 U/L (40-110); Anion Gap 23 mmol/L (10-20); BUN (Urea Nitrogen) 16 mg/dL (9.8-20.1); Bilirubin, Total 0.7 mg/dL (0.2-1.2); Calc. Creatinine Clearance 0 mL/min (70-130); Calcium 10.7 mg/dL (7.8-10.44); Carbon Dioxide 25 mmol/L (23-31); Chloride 92 mmol/L (98-107); Globulin 3.4 g/dL (2.4-3.5); Glucose 83 mg/dL (83-110); Potassium 3.1 mmol/L (3.5-5.1); Protein, Total 7.8 g/dL (5.8-8.1); Sodium 137 mmol/L (136-145)
[2021-05-13 11:36] LABS: Acetaminophen Less than 6.0 mcg/mL (10.0-30.0); Alcohol Less than 10 mg/dL (Less than 10); Salicylate Less than 8.0 mg/dL (15.0-30.0)
[2021-05-13] MEDS ORDERED: Cefepime 2 GM VIAL ONE (11:43)
[2021-05-13 11:46] LABS: Bacteria/HPF 4+ HPF (None Seen); Bilirubin Negative (Negative); Blood, Urine Trace (Negative); Clarity Turbid (Clear); Glucose, Urine (Dipstick) Normal (Negative); Ketone, Urine 60 mg/dL (Negative); Leukocyte 25 Leu/uL (Negative); Nitrite Negative (Negative); Protein, Urine (Dipstick) 70 mg/dL (Neg-Trace); Specific Gravity, Urine 1.024 (1.002-1.036); Squamous Epithelial None Seen HPF (0-3); pH, Urine 5.5 (5.0-9.0)
[2021-05-13 11:49] LABS: Amphetamine Not Detected (NotDetected); Barbiturates Screen Not Detected (NotDetected); Benzodiazepine Screen Detected (NotDetected); Cocaine Metabolite Screen Not Detected (NotDetected); Methadone Not Detected (NotDetected); Methamphetamine Not Detected (NotDetected); Opiate Screen Detected (NotDetected); Oxycodone Screen Not Detected (NotDetected); Phencyclidine (PCP) Not Detected (NotDetected); THC/Cannabinoid Screen Not Detected (NotDetected); Tricyclic Screen Not Detected (NotDetected)
[2021-05-13 12:09] LABS: RBC/HPF 0-3 HPF (0-3)
[2021-05-13 12:21] LABS: CKMB 14.1 ng/mL (0-6.6)
[2021-05-13] MEDS ORDERED: Vancomycin 1 GM in Premix Bag 1 BAG IVPB SCH (13:30)
[2021-05-13] MEDS ORDERED: Acetaminophen 325 MG TAB PO PRN (14:33)
[2021-05-13 15:21] LABS: Lactic Acid 2.9 mmol/L (0.5-2.2)
[2021-05-13] MEDS ORDERED: Labetalol HCl 100 MG/20 ML VIAL ONE (15:35)
[2021-05-13] MEDS ORDERED: Ondansetron PF 4 MG/2 ML Vial ONE (16:42)
[2021-05-13 19:40] VITALS: BMI 23.8
[2021-05-13] MEDS ORDERED: Sodium Chloride 0.9% 100 ML ONE (19:42)
[2021-05-13] MEDS ORDERED: cefTRIAXone\\ROCEPHIN 1 GM VIAL ONE (19:42)
[2021-05-13] MEDS: Lactated Ringer's 1,000 ML IV SCH (19:55)
[2021-05-13] MEDS: cefTRIAXone\\ROCEPHIN 1 GM in Sodium Chloride 0.9% 100 ML IVPB SCH (19:55)
[2021-05-13] MEDS ORDERED: Morphine 4 MG/ML VIAL ONE (20:09)
[2021-05-13] MEDS: Morphine 4 MG/ML VIAL SLOW IVP PRN (20:11)
[2021-05-14] MEDS: Morphine 4 MG/ML VIAL SLOW IVP PRN (00:04)
[2021-05-14] MEDS: Lactated Ringer's 1,000 ML IV SCH ×3 (05:15→22:16)
[2021-05-14] MEDS: Levothyroxine Sodium 75 MCG TAB PO SCH (06:01)
[2021-05-14 06:11] LABS: #Lymphocytes 1.7 thou/uL (1.20-3.40); #Neutrophils 6.2 thou/uL (1.40-6.50); %Basophils 0.2 % (0.0-1.0); %Eosinophils 0.4 % (0.0-10.0); %Lymphocytes 18.6 % (21.0-51.0); %Monocytes 11.6 % (0.0-10.0); %Neutrophils 69.3 % (42.0-75.0); Hemoglobin 12.7 g/dL (12.0-16.0); Mean Corpuscular Hemoglobin 34.5 pg (27.0-31.0); Mean Platelet Volume 6.5 fL (7.4-10.4); Platelet Count 310 thou/uL (130-400); RBC Distribution Width 14.3 % (11.5-14.5); Red Blood Cell (RBC) Count 3.67 mill/uL (4.20-5.40); White Blood Cell (WBC) Count 8.9 thou/uL (4.8-10.8)
[2021-05-14 06:30] LABS: Anion Gap 14 mmol/L (10-20); BUN (Urea Nitrogen) 13 mg/dL (9.8-20.1); Calc. Creatinine Clearance 66 mL/min (70-130); Calcium 8.3 mg/dL (7.8-10.44); Carbon Dioxide 19 mmol/L (23-31); Chloride 106 mmol/L (98-107); Glucose 82 mg/dL (83-110); Potassium 3.3 mmol/L (3.5-5.1); Sodium 136 mmol/L (136-145)
[2021-05-14] MEDS ORDERED: Diazepam 5 MG TAB PO PRN (07:25)
[2021-05-14] MEDS ORDERED: NEBIVOLOL HCL 10 MG PO SCH (09:00)
[2021-05-14] MEDS ORDERED: Non-Formulary Item 1 EACH (Folic Acid [Folic Acid] 0.8 MG Tablet) PO SCH (09:00)
[2021-05-14] MEDS ORDERED: Non-Formulary Item 1 EACH (Cholecalciferol (Vitamin D3) [Vitamin D3] 1,000 UNIT Capsule) PO SCH (09:00)
[2021-05-14] MEDS: Enoxaparin Sodium 40 MG/0.4 ML SYRINGE SC SCH (09:14)
[2021-05-14] MEDS: Gabapentin 400 MG CAP PO SCH ×3 (09:15→21:14)
[2021-05-14] MEDS: FLUoxetine HCl 20 MG CAP PO SCH (09:16)
[2021-05-14] MEDS: Lisinopril/Hydrochlorothiazide 20/25 mg Tablet PO SCH (09:20)
[2021-05-14] MEDS: Ascorbic Acid 500 mg Chewable Tablet PO SCH (09:20)
[2021-05-14] MEDS: Folic Acid 1 MG TAB PO SCH (09:20)
[2021-05-14] MEDS: Multivit, Therapeutic 1 TAB PO SCH (09:20)
[2021-05-14] MEDS: Cholecalciferol 1,000 UNITS (25 MCG) TAB PO SCH (09:20)
[2021-05-14] MEDS: Loperamide HCl 2 MG CAP PO PRN (09:20)
[2021-05-14] MEDS: Nebivolol HCl 5 MG TAB PO SCH (09:26)
[2021-05-14] MEDS: HYDROcodone/Acetaminophen 5/325 mg Tablet PO PRN ×3 (09:55→22:17)
[2021-05-14] MEDS: cefTRIAXone\\ROCEPHIN 1 GM in Sodium Chloride 0.9% 100 ML IVPB SCH (14:24)
[2021-05-14 14:34] LABS: SARS-CoV-2 PCR by NAA Not Detected (NotDetected)
[2021-05-14] MEDS ORDERED: Simvastatin 20 MG TAB PO SCH (21:00)
[2021-05-14] MEDS ORDERED: Non-Formulary Item 1 EACH (Multivitamin [Multi-Vitamin Daily] 1 TABLET Tablet) PO SCH (21:00)
[2021-05-14] MEDS: Atorvastatin Calcium 10 MG TAB PO SCH (21:14)
[2021-05-14] MEDS: Estradiol 1 MG TAB PO SCH (21:15)
[2021-05-15] MEDS: HYDROcodone/Acetaminophen 5/325 mg Tablet PO PRN ×4 (03:39→18:13)
[2021-05-15] MEDS: Levothyroxine Sodium 75 MCG TAB PO SCH (06:04)
[2021-05-15 09:46] LABS: Anion Gap 14 mmol/L (10-20); BUN (Urea Nitrogen) 11 mg/dL (9.8-20.1); Calc. Creatinine Clearance 65 mL/min (70-130); Calcium 8.3 mg/dL (7.8-10.44); Carbon Dioxide 22 mmol/L (23-31); Chloride 102 mmol/L (98-107); Glucose 66 mg/dL (83-110); Sodium 135 mmol/L (136-145)
[2021-05-15] MEDS: Gabapentin 400 MG CAP PO SCH ×3 (09:47→20:16)
[2021-05-15] MEDS: Nebivolol HCl 5 MG TAB PO SCH (09:47)
[2021-05-15] MEDS: Cholecalciferol 1,000 UNITS (25 MCG) TAB PO SCH (09:48)
[2021-05-15] MEDS: Ascorbic Acid 500 mg Chewable Tablet PO SCH (09:48)
[2021-05-15] MEDS: Enoxaparin Sodium 40 MG/0.4 ML SYRINGE SC SCH (09:48)
[2021-05-15] MEDS: Multivit, Therapeutic 1 TAB PO SCH (09:48)
[2021-05-15] MEDS: Folic Acid 1 MG TAB PO SCH (09:48)
[2021-05-15] MEDS: FLUoxetine HCl 20 MG CAP PO SCH (09:48)
[2021-05-15] MEDS: Lactated Ringer's 1,000 ML IV SCH ×2 (09:48→18:17)
[2021-05-15] MEDS: Lisinopril/Hydrochlorothiazide 20/25 mg Tablet PO SCH (09:49)
[2021-05-15 09:51] LABS: Potassium 2.6 mmol/L (3.5-5.1)
[2021-05-15] MEDS: Loperamide HCl 2 MG CAP PO PRN (10:03)
[2021-05-15] MEDS ORDERED: Potassium Chloride 40 MEQ in Sodium Chloride 0.9% 250 ML 250 ML IVPB SCH (10:15)
[2021-05-15 10:43] LABS: Magnesium 1.5 mg/dL (1.6-2.6)
[2021-05-15] MEDS ORDERED: Magnesium 2 GM/50 ML 2 GM in Premix Bag 1 BAG IVPB SCH (11:15)
[2021-05-15] MEDS: Morphine 4 MG/ML VIAL SLOW IVP PRN (11:43)
[2021-05-15] MEDS: Cyclobenzaprine 10 MG TAB PO PRN ×2 (11:59→20:16)
[2021-05-15] MEDS: cefTRIAXone\\ROCEPHIN 1 GM in Sodium Chloride 0.9% 100 ML IVPB SCH (16:59)
[2021-05-15] MEDS: Estradiol 1 MG TAB PO SCH (20:17)
[2021-05-15] MEDS: Atorvastatin Calcium 10 MG TAB PO SCH (20:17)
[2021-05-16] MEDS: Levothyroxine Sodium 75 MCG TAB PO SCH (04:06)
[2021-05-16] MEDS: HYDROcodone/Acetaminophen 5/325 mg Tablet PO PRN ×3 (04:06→15:08)
[2021-05-16 05:50] LABS: Anion Gap 11 mmol/L (10-20); BUN (Urea Nitrogen) 6 mg/dL (9.8-20.1); Calc. Creatinine Clearance 76 mL/min (70-130); Calcium 7.8 mg/dL (7.8-10.44); Carbon Dioxide 23 mmol/L (23-31); Chloride 102 mmol/L (98-107); Glucose 66 mg/dL (83-110); Magnesium 1.6 mg/dL (1.6-2.6); Sodium 133 mmol/L (136-145)
[2021-05-16 05:51] LABS: Critical Call Chemistry 2NO.MO@551; Potassium 2.9 mmol/L (3.5-5.1)
[2021-05-16] MEDS ORDERED: Electrolyte Replacement Protocol FS PRN (06:30)
[2021-05-16] MEDS: Lactated Ringer's 1,000 ML IV SCH ×2 (06:35→20:40)
[2021-05-16] MEDS: Potassium Chloride 20 MEQ TAB PO SCH ×2 (06:35→11:02)
[2021-05-16] MEDS ORDERED: Magnesium 2 GM/50 ML 2 GM in Premix Bag 1 BAG IVPB SCH (06:45)
[2021-05-16] MEDS: Ascorbic Acid 500 mg Chewable Tablet PO SCH (09:07)
[2021-05-16] MEDS: Folic Acid 1 MG TAB PO SCH (09:08)
[2021-05-16] MEDS: Lisinopril/Hydrochlorothiazide 20/25 mg Tablet PO SCH (09:08)
[2021-05-16] MEDS: Gabapentin 400 MG CAP PO SCH ×3 (09:08→20:41)
[2021-05-16] MEDS: Nebivolol HCl 5 MG TAB PO SCH (09:08)
[2021-05-16] MEDS: Multivit, Therapeutic 1 TAB PO SCH (09:08)
[2021-05-16] MEDS: Enoxaparin Sodium 40 MG/0.4 ML SYRINGE SC SCH (09:10)
[2021-05-16] MEDS: Cholecalciferol 1,000 UNITS (25 MCG) TAB PO SCH (09:10)
[2021-05-16] MEDS: FLUoxetine HCl 20 MG CAP PO SCH (09:11)
[2021-05-16] MEDS: cefTRIAXone\\ROCEPHIN 1 GM in Sodium Chloride 0.9% 100 ML IVPB SCH (15:15)
[2021-05-16] MEDS: Cyclobenzaprine 10 MG TAB PO PRN ×2 (15:17→20:49)
[2021-05-16 16:27] LABS: Potassium 3.8 mmol/L (3.5-5.1)
[2021-05-16] MEDS: Potassium Chloride 10 MEQ TAB PO SCH (17:55)
[2021-05-16] MEDS: Loperamide HCl 2 MG CAP PO PRN (18:11)
[2021-05-16] MEDS ORDERED: oxyCODONE 5 MG TAB PO SCH (18:30)
[2021-05-16] MEDS: Potassium Bicarbonate/Cit Ac 20 MEQ TAB PO SCH (19:28)
[2021-05-16] MEDS: Loperamide HCl 2 MG CAP PO SCH (19:28)
[2021-05-16] MEDS: Estradiol 1 MG TAB PO SCH (20:42)
[2021-05-16] MEDS: Atorvastatin Calcium 10 MG TAB PO SCH (20:45)
[2021-05-17] MEDS: oxyCODONE 5 MG TAB PO SCH ×4 (00:04→16:54)
[2021-05-17] MEDS: HYDROcodone/Acetaminophen 5/325 mg Tablet PO PRN ×2 (00:05→10:05)
[2021-05-17] MEDS: Loperamide HCl 2 MG CAP PO SCH ×7 (00:06→22:27)
[2021-05-17] MEDS: Potassium Bicarbonate/Cit Ac 20 MEQ TAB PO SCH (00:06)
[2021-05-17 05:22] LABS: Magnesium 1.4 mg/dL (1.6-2.6)
[2021-05-17] MEDS: Levothyroxine Sodium 75 MCG TAB PO SCH (05:38)
[2021-05-17] MEDS: Magnesium 2 GM/50 ML 2 GM in Premix Bag 1 BAG IVPB SCH ×2 (06:21→08:50)
[2021-05-17] MEDS: Multivit, Therapeutic 1 TAB PO SCH (08:50)
[2021-05-17] MEDS: Potassium Chloride 10 MEQ TAB PO SCH ×2 (08:50→16:54)
[2021-05-17] MEDS: Nebivolol HCl 5 MG TAB PO SCH (08:51)
[2021-05-17] MEDS: Cholecalciferol 1,000 UNITS (25 MCG) TAB PO SCH (08:51)
[2021-05-17] MEDS: FLUoxetine HCl 20 MG CAP PO SCH (08:51)
[2021-05-17] MEDS: Gabapentin 400 MG CAP PO SCH ×3 (08:51→21:47)
[2021-05-17] MEDS: Ascorbic Acid 500 mg Chewable Tablet PO SCH (08:51)
[2021-05-17] MEDS: Folic Acid 1 MG TAB PO SCH (08:51)
[2021-05-17] MEDS: Lisinopril/Hydrochlorothiazide 20/25 mg Tablet PO SCH (08:52)
[2021-05-17] MEDS: Enoxaparin Sodium 40 MG/0.4 ML SYRINGE SC SCH (08:52)
[2021-05-17] MEDS: Cyclobenzaprine 10 MG TAB PO PRN (09:01)
[2021-05-17 09:37] LABS: Hemoglobin 12.7 g/dL (12.0-16.0); Mean Corpuscular HGB CONC 33.2 g/dL (32.0-36.0); Mean Corpuscular Hemoglobin 34.4 pg (27.0-31.0); Mean Platelet Volume 6.4 fL (7.4-10.4); Platelet Count 192 thou/uL (130-400); RBC Distribution Width 14.1 % (11.5-14.5); White Blood Cell (WBC) Count 6.8 thou/uL (4.8-10.8)
[2021-05-17 09:56] LABS: Anion Gap 15 mmol/L (10-20); BUN (Urea Nitrogen) 4 mg/dL (9.8-20.1); Calc. Creatinine Clearance 82 mL/min (70-130); Calcium 8.3 mg/dL (7.8-10.44); Carbon Dioxide 22 mmol/L (23-31); Chloride 100 mmol/L (98-107); Potassium 3.6 mmol/L (3.5-5.1); Sodium 133 mmol/L (136-145)
[2021-05-17 10:04] LABS: Glucose 59 mg/dL (83-110)
[2021-05-17 10:27] LABS: Band 6 % (5-11); Eosinophils 3 % (0-10); Lymphocytes 55 % (21-51); MDiff Complete? YES; Monocytes 5 % (0-10); Neutrophil 30 % (42-75); Platelet Morphology Comment Appears Adequate; Reactive Lymphocytes 1 % (0-10)
[2021-05-17] MEDS: cefTRIAXone\\ROCEPHIN 1 GM in Sodium Chloride 0.9% 100 ML IVPB SCH (14:07)
[2021-05-17] MEDS: Lactated Ringer's 1,000 ML IV SCH (16:07)
[2021-05-17] MEDS ORDERED: Dextrose 50% Abboject 50 ML SYRINGE SLOW IVP PRN (18:37)
[2021-05-17] MEDS ORDERED: Dextrose 5% in Water 1,000 ML IV PRN (18:37)
[2021-05-17] MEDS: Potassium Chloride 20 MEQ TAB PO SCH ×2 (19:46→22:26)
[2021-05-17] MEDS: Estradiol 1 MG TAB PO SCH (21:46)
[2021-05-17] MEDS: Atorvastatin Calcium 10 MG TAB PO SCH (21:47)
[2021-05-18] MEDS: oxyCODONE 5 MG TAB PO SCH ×4 (00:21→17:12)
[2021-05-18] MEDS: Lactated Ringer's 1,000 ML IV SCH ×2 (00:22→16:00)
[2021-05-18] MEDS: Loperamide HCl 2 MG CAP PO SCH ×6 (02:22→21:32)
[2021-05-18] MEDS: Levothyroxine Sodium 75 MCG TAB PO SCH (05:35)
[2021-05-18 05:58] LABS: Anion Gap 13 mmol/L (10-20); BUN (Urea Nitrogen) 4 mg/dL (9.8-20.1); Calc. Creatinine Clearance 79 mL/min (70-130); Carbon Dioxide 23 mmol/L (23-31); Chloride 102 mmol/L (98-107); Glucose 74 mg/dL (83-110); Magnesium 1.5 mg/dL (1.6-2.6); Potassium 4.5 mmol/L (3.5-5.1); Sodium 133 mmol/L (136-145)
[2021-05-18 06:01] LABS: Band 3 % (5-11); Hemoglobin 11.4 g/dL (12.0-16.0); Hypochromia SLIGHT = 6-15 cells (100X) (0-5/hpf); Lymphocytes 37 % (21-51); MDiff Complete? YES; Macrocytosis SLIGHT = 6-15 cells (100X) (0-5/hpf); Mean Corpuscular HGB CONC 32.2 g/dL (32.0-36.0); Mean Platelet Volume 6.7 fL (7.4-10.4); Monocytes 7 % (0-10); Neutrophil 53 % (42-75); Platelet Count 181 thou/uL (130-400); Platelet Morphology Comment Appears Adequate; Red Blood Cell (RBC) Count 3.36 mill/uL (4.20-5.40); White Blood Cell (WBC) Count 6.8 thou/uL (4.8-10.8)
[2021-05-18] MEDS ORDERED: Magnesium 2 GM/50 ML 2 GM in Premix Bag 1 BAG IVPB SCH (07:00)
[2021-05-18] MEDS: Enoxaparin Sodium 40 MG/0.4 ML SYRINGE SC SCH (08:11)
[2021-05-18] MEDS: Ascorbic Acid 500 mg Chewable Tablet PO SCH (08:12)
[2021-05-18] MEDS: Folic Acid 1 MG TAB PO SCH (08:12)
[2021-05-18] MEDS: Lisinopril/Hydrochlorothiazide 20/25 mg Tablet PO SCH (08:12)
[2021-05-18] MEDS: Multivit, Therapeutic 1 TAB PO SCH (08:13)
[2021-05-18] MEDS: Gabapentin 400 MG CAP PO SCH ×3 (08:13→21:32)
[2021-05-18] MEDS: FLUoxetine HCl 20 MG CAP PO SCH (08:15)
[2021-05-18] MEDS: Potassium Chloride 10 MEQ TAB PO SCH ×2 (08:15→16:55)
[2021-05-18] MEDS: Cholecalciferol 1,000 UNITS (25 MCG) TAB PO SCH (08:15)
[2021-05-18] MEDS: Nebivolol HCl 5 MG TAB PO SCH (08:15)
[2021-05-18] MEDS: cefTRIAXone\\ROCEPHIN 1 GM in Sodium Chloride 0.9% 100 ML IVPB SCH (15:00)
[2021-05-18] MEDS: Atorvastatin Calcium 10 MG TAB PO SCH (21:32)
[2021-05-18] MEDS: Estradiol 1 MG TAB PO SCH (21:33)
[2021-05-19] MEDS: oxyCODONE 5 MG TAB PO SCH ×5 (00:21→23:34)
[2021-05-19] MEDS: Loperamide HCl 2 MG CAP PO SCH ×3 (02:59→11:13)
[2021-05-19] MEDS: Lactated Ringer's 1,000 ML IV SCH ×2 (05:07→17:38)
[2021-05-19] MEDS: Levothyroxine Sodium 75 MCG TAB PO SCH (05:08)
[2021-05-19 06:15] LABS: #Eosinphils 0.4 thou/uL (0.0-0.7); #Lymphocytes 3.1 thou/uL (1.20-3.40); #Monocytes 0.8 thou/uL (0.11-0.59); #Neutrophils 2.9 thou/uL (1.40-6.50); %Basophils 0.6 % (0.0-1.0); %Eosinophils 5.1 % (0.0-10.0); %Monocytes 10.8 % (0.0-10.0); %Neutrophils 40.5 % (42.0-75.0); Mean Corpuscular HGB CONC 33.3 g/dL (32.0-36.0); Mean Platelet Volume 6.8 fL (7.4-10.4); Platelet Count 176 thou/uL (130-400); Red Blood Cell (RBC) Count 3.15 mill/uL (4.20-5.40); White Blood Cell (WBC) Count 7.1 thou/uL (4.8-10.8)
[2021-05-19 06:37] LABS: Anion Gap 12 mmol/L (10-20); BUN (Urea Nitrogen) Less than 4 mg/dL (9.8-20.1); Calc. Creatinine Clearance 74 mL/min (70-130); Calcium 8.1 mg/dL (7.8-10.44); Carbon Dioxide 24 mmol/L (23-31); Chloride 99 mmol/L (98-107); Glucose 75 mg/dL (83-110); Potassium 3.9 mmol/L (3.5-5.1); Sodium 131 mmol/L (136-145)
[2021-05-19] MEDS: Multivit, Therapeutic 1 TAB PO SCH (08:30)
[2021-05-19] MEDS: Ascorbic Acid 500 mg Chewable Tablet PO SCH (08:30)
[2021-05-19] MEDS: Gabapentin 400 MG CAP PO SCH ×3 (08:30→20:51)
[2021-05-19] MEDS: Enoxaparin Sodium 40 MG/0.4 ML SYRINGE SC SCH (08:30)
[2021-05-19] MEDS: Nebivolol HCl 5 MG TAB PO SCH (08:31)
[2021-05-19] MEDS: Lisinopril/Hydrochlorothiazide 20/25 mg Tablet PO SCH (08:31)
[2021-05-19] MEDS: Cholecalciferol 1,000 UNITS (25 MCG) TAB PO SCH (08:31)
[2021-05-19] MEDS: Folic Acid 1 MG TAB PO SCH (08:31)
[2021-05-19] MEDS: Potassium Chloride 10 MEQ TAB PO SCH ×2 (08:31→17:34)
[2021-05-19] MEDS: FLUoxetine HCl 20 MG CAP PO SCH (08:31)
[2021-05-19] MEDS: Estradiol 1 MG TAB PO SCH (20:51)
[2021-05-19] MEDS: Atorvastatin Calcium 10 MG TAB PO SCH (20:51)
[2021-05-19] MEDS: traZODone HCl 50 MG TAB PO PRN (20:51)
[2021-05-19] MEDS: Cyclobenzaprine 10 MG TAB PO PRN (20:51)
[2021-05-19] MEDS: guaiFENesin ER 600 MG TAB PO PRN (20:52)
[2021-05-20 04:47] LABS: #Eosinphils 0.3 thou/uL (0.0-0.7); #Lymphocytes 2.8 thou/uL (1.20-3.40); #Monocytes 0.7 thou/uL (0.11-0.59); #Neutrophils 2.7 thou/uL (1.40-6.50); %Basophils 0.2 % (0.0-1.0); %Eosinophils 4.3 % (0.0-10.0); %Lymphocytes 43.3 % (21.0-51.0); %Monocytes 11.2 % (0.0-10.0); Hemoglobin 10.8 g/dL (12.0-16.0); Mean Corpuscular HGB CONC 32.8 g/dL (32.0-36.0); Mean Corpuscular Hemoglobin 34.2 pg (27.0-31.0); Mean Platelet Volume 6.8 fL (7.4-10.4); Platelet Count 197 thou/uL (130-400); Red Blood Cell (RBC) Count 3.16 mill/uL (4.20-5.40); White Blood Cell (WBC) Count 6.5 thou/uL (4.8-10.8)
[2021-05-20] MEDS: oxyCODONE 5 MG TAB PO SCH ×3 (04:51→17:55)
[2021-05-20] MEDS: Levothyroxine Sodium 75 MCG TAB PO SCH (04:52)
[2021-05-20 05:10] LABS: Anion Gap 13 mmol/L (10-20); BUN (Urea Nitrogen) 4 mg/dL (9.8-20.1); Calc. Creatinine Clearance 70 mL/min (70-130); Calcium 8.1 mg/dL (7.8-10.44); Carbon Dioxide 24 mmol/L (23-31); Chloride 100 mmol/L (98-107); Glucose 150 mg/dL (83-110); Potassium 3.6 mmol/L (3.5-5.1); Sodium 133 mmol/L (136-145)
[2021-05-20] MEDS: Enoxaparin Sodium 40 MG/0.4 ML SYRINGE SC SCH (09:04)
[2021-05-20] MEDS: Gabapentin 400 MG CAP PO SCH ×3 (09:04→21:47)
[2021-05-20] MEDS: Cholecalciferol 1,000 UNITS (25 MCG) TAB PO SCH (09:04)
[2021-05-20] MEDS: Ascorbic Acid 500 mg Chewable Tablet PO SCH (09:04)
[2021-05-20] MEDS: FLUoxetine HCl 20 MG CAP PO SCH (09:04)
[2021-05-20] MEDS: Potassium Chloride 10 MEQ TAB PO SCH ×2 (09:05→17:58)
[2021-05-20] MEDS: Folic Acid 1 MG TAB PO SCH (09:05)
[2021-05-20] MEDS: Multivit, Therapeutic 1 TAB PO SCH (09:05)
[2021-05-20] MEDS: Lisinopril/Hydrochlorothiazide 20/25 mg Tablet PO SCH (10:15)
[2021-05-20] MEDS: Nebivolol HCl 5 MG TAB PO SCH (16:50)
[2021-05-20] MEDS: Lactated Ringer's 1,000 ML IV SCH ×2 (17:57→23:20)
[2021-05-20] MEDS: traZODone HCl 50 MG TAB PO PRN (21:46)
[2021-05-20] MEDS: Cyclobenzaprine 10 MG TAB PO PRN (21:46)
[2021-05-20] MEDS: Atorvastatin Calcium 10 MG TAB PO SCH (21:46)
[2021-05-20] MEDS: Estradiol 1 MG TAB PO SCH (21:47)
[2021-05-20] MEDS: guaiFENesin ER 600 MG TAB PO PRN (21:48)
[2021-05-20] MEDS ORDERED: Sodium Chloride 0.9% 500 ML IV SCH (23:45)
[2021-05-21] MEDS: oxyCODONE 5 MG TAB PO SCH ×4 (00:01→17:21)
[2021-05-21 03:28] LABS: SARS-CoV-2 PCR by NAA Not Detected (NotDetected)
[2021-05-21 05:11] LABS: #Eosinphils 0.3 thou/uL (0.0-0.7); #Lymphocytes 3.5 thou/uL (1.20-3.40); #Neutrophils 2.8 thou/uL (1.40-6.50); %Basophils 0.3 % (0.0-1.0); %Eosinophils 3.9 % (0.0-10.0); %Lymphocytes 45.7 % (21.0-51.0); %Monocytes 13.5 % (0.0-10.0); %Neutrophils 36.7 % (42.0-75.0); Hemoglobin 10.5 g/dL (12.0-16.0); Mean Corpuscular HGB CONC 34.1 g/dL (32.0-36.0); Mean Corpuscular Hemoglobin 35.6 pg (27.0-31.0); Mean Platelet Volume 6.8 fL (7.4-10.4); Platelet Count 197 thou/uL (130-400); RBC Distribution Width 14.1 % (11.5-14.5); Red Blood Cell (RBC) Count 2.94 mill/uL (4.20-5.40); White Blood Cell (WBC) Count 7.6 thou/uL (4.8-10.8)
[2021-05-21 05:31] LABS: Anion Gap 11 mmol/L (10-20); BUN (Urea Nitrogen) 4 mg/dL (9.8-20.1); Calc. Creatinine Clearance 75 mL/min (70-130); Calcium 7.8 mg/dL (7.8-10.44); Carbon Dioxide 22 mmol/L (23-31); Chloride 107 mmol/L (98-107); Glucose 80 mg/dL (83-110); Potassium 4.3 mmol/L (3.5-5.1); Sodium 136 mmol/L (136-145)
[2021-05-21] MEDS: Levothyroxine Sodium 75 MCG TAB PO SCH (05:51)
[2021-05-21] MEDS: Nebivolol HCl 5 MG TAB PO SCH (09:20)
[2021-05-21] MEDS: Enoxaparin Sodium 40 MG/0.4 ML SYRINGE SC SCH (09:22)
[2021-05-21] MEDS: Multivit, Therapeutic 1 TAB PO SCH (09:23)
[2021-05-21] MEDS: Ascorbic Acid 500 mg Chewable Tablet PO SCH (09:23)
[2021-05-21] MEDS: FLUoxetine HCl 20 MG CAP PO SCH (09:24)
[2021-05-21] MEDS: Gabapentin 400 MG CAP PO SCH ×2 (09:24→14:57)
[2021-05-21] MEDS: Cholecalciferol 1,000 UNITS (25 MCG) TAB PO SCH (09:24)
[2021-05-21] MEDS: Folic Acid 1 MG TAB PO SCH (09:25)
[2021-05-21] MEDS: Polyethylene Glycol 3350 17 GM Packet PO SCH ×2 (09:30→09:48)
[2021-05-21] MEDS: Lisinopril/Hydrochlorothiazide 20/25 mg Tablet PO SCH (09:48)
[2021-05-21] MEDS: Potassium Chloride 10 MEQ TAB PO SCH ×2 (09:49→17:09)
[2021-05-21 15:34] VITALS: BP 102/67; TEMP 98.2
[2021-05-21] MEDS: Lactated Ringer's 1,000 ML IV SCH (16:30)
== END 2021-05-21 17:20 | DRG 871 ==
LOC: ERS 10:34 → ERHOLD 14:00 → NEURO 21:51 → 2NO 05-14 20:05 → SJJU 05-17 11:29
PROVIDERS: ADMIT Internal Medicine; ATTEND Internal Medicine
DX: A41.51 Sepsis due to Escherichia coli [E. coli] (principal); G93.41 Metabolic encephalopathy; N39.0 Urinary tract infection, site not specified; Z20.822 Contact with and (suspected) exposure to COVID-19; M06.9 Rheumatoid arthritis, unspecified; E03.9 Hypothyroidism, unspecified; E87.6 Hypokalemia; G89.29 Other chronic pain; M54.50 Low back pain, unspecified; K52.9 Noninfective gastroenteritis and colitis, unspecified; E16.2 Hypoglycemia, unspecified; Z98.890 Other specified postprocedural states; Z79.899 Other long term (current) drug therapy; Z88.1 Allergy status to other antibiotic agents; Z88.8 Allergy status to other drugs, medicaments and biological substances; Z79.890 Hormone replacement therapy; Z79.52 Long term (current) use of systemic steroids; Z82.49 Family history of ischemic heart disease and other diseases of the circulatory system; Z83.49 Family history of other endocrine, nutritional and metabolic diseases
CPT/HCPCS: 36415; 36416; 70450; 71045; 80048; 80053; 80306; 80307; 81003; 81015; 82553; 83605; 83735; 84443; 84484; 85025; 87040; 87077; 87086; 87149; 87186; 87324; 87449; 93005; 96365; 96367; 96375; J0692; J0696; J1650; J2270; J2405; J3370; J3475; J3480; J3490; J7030; J7050; J7120; U0003; U0005

== ENCOUNTER 2021-12-24 09:16 | Outpatient (CLI) | payer MEDICARE, BC | END 2021-12-24 09:17 | disposition home or self-care (01) | LOC: RAD 09:16 | PROVIDERS: ATTEND Nurse Practitioner Family | DX: M43.16 Spondylolisthesis, lumbar region (principal); M47.816 Spondylosis without myelopathy or radiculopathy, lumbar region | CPT/HCPCS: 72100 ==

== ENCOUNTER 2022-02-03 12:24 | Outpatient (CLI) | payer MEDICARE, BC | END 2022-02-03 12:25 | disposition home or self-care (01) | LOC: SCSMRI 12:24 | PROVIDERS: ATTEND Specialist | DX: M51.16 Intervertebral disc disorders with radiculopathy, lumbar region (principal); G95.89 Other specified diseases of spinal cord; M47.26 Other spondylosis with radiculopathy, lumbar region; M47.817 Spondylosis without myelopathy or radiculopathy, lumbosacral region; Z98.890 Other specified postprocedural states | CPT/HCPCS: 72158; 82565 ==

== ENCOUNTER 2022-07-03 13:59 | Outpatient (CLI) | payer MEDICARE, BC | END 2022-07-03 14:00 | disposition home or self-care (01) | LOC: BICCT 13:59 | PROVIDERS: ATTEND Specialist | DX: M51.16 Intervertebral disc disorders with radiculopathy, lumbar region (principal); M47.26 Other spondylosis with radiculopathy, lumbar region; M47.815 Spondylosis without myelopathy or radiculopathy, thoracolumbar region; M48.061 Spinal stenosis, lumbar region without neurogenic claudication; N28.9 Disorder of kidney and ureter, unspecified; Z98.1 Arthrodesis status | CPT/HCPCS: 72131 ==

== ENCOUNTER 2022-07-15 12:34 | Outpatient (CLI) | payer MEDICARE, BC ==
[2022-07-15 14:27] LABS: Hemoglobin 14.1 g/dL (12.0-15.5); Mean Corpuscular HGB CONC 32.8 g/dL (32.0-36.0); Mean Corpuscular Hemoglobin 35.1 pg (27.0-33.0); Mean Platelet Volume 9.3 fl (7.4-10.4); Platelet Count 268 10x3/uL (150-450); RBC Distribution Width 13.4 % (11.5-14.5); Red Blood Cell (RBC) Count 4.02 10x6/uL (3.90-5.03); White Blood Cell (WBC) Count 11.8 10x3/uL (3.5-10.5)
[2022-07-15 14:34] LABS: Anion Gap 17 mmol/L (10-20); BUN (Urea Nitrogen) 14 mg/dL (9.8-20.1); Calc. Creatinine Clearance 0 mL/min (70-130); Calcium 9.7 mg/dL (7.8-10.44); Carbon Dioxide 27 mmol/L (23-31); Chloride 103 mmol/L (98-107); Estimated GFR 73; Glucose 87 mg/dL (83-110); Potassium 4.5 mmol/L (3.5-5.1); Sodium 142 mmol/L (136-145)
[2022-07-15 14:39] LABS: Prothrombin Time 10.5 sec (9.5-12.1)
[2022-07-15 14:43] LABS: PTT 21.4 sec (22.0-33.0)
== END 2022-07-15 12:35 | disposition home or self-care (01) ==
LOC: LABBT 12:34
PROVIDERS: ATTEND Surgery
DX: Z01.818 Encounter for other preprocedural examination (principal); M51.16 Intervertebral disc disorders with radiculopathy, lumbar region
CPT/HCPCS: 80048; 85027; 85610; 85730; 93005; 93010

== ENCOUNTER 2022-07-18 08:20 | Observation (INO) | payer MEDICARE, BC ==
[2022-07-15 13:19] VITALS: BMI 23.8
[2022-07-18] MEDS ORDERED: Clindamycin/D5W 900 mg/50 ml Premix Bag ONE (09:10)
[2022-07-18] MEDS ORDERED: Levofloxacin 500 mg/D5W 100 ml Premix Bag ONE (09:10)
[2022-07-18] MEDS ORDERED: Famotidine/PF 20 mg/2ml Vial ONE (09:10)
[2022-07-18] MEDS ORDERED: Midazolam HCl 2 mg/2 ml Vial ONE (11:04)
[2022-07-18] MEDS ORDERED: HYDROmorphone 2 MG/ML VIAL ONE (12:05)
[2022-07-18] MEDS ORDERED: Vancomycin 1 GM VIAL ONE (12:06)
[2022-07-18] MEDS ORDERED: Thrombin 5000 UNITS/5 ML VIAL ONE (12:06)
[2022-07-18] MEDS ORDERED: Rocuronium Bromide 10 MG/ML (10ML VIAL) ONE (12:30)
[2022-07-18] MEDS ORDERED: Ondansetron PF 4 MG/2 ML Vial ONE (12:30)
[2022-07-18] MEDS ORDERED: ePHEDrine Sulfate 50 MG/10 ML VIAL ONE (12:30)
[2022-07-18] MEDS ORDERED: Dexamethasone 20 MG/5 ML VIAL ONE (12:30)
[2022-07-18] MEDS ORDERED: PHENYLEPHRINE-NS 100 MCG/ML 10 ML SYRINGE ONE (12:30)
[2022-07-18] MEDS ORDERED: PROPOFOL 200 MG/20 ML VIAL ONE (12:30)
[2022-07-18] MEDS ORDERED: Lidocaine 1% PF 5 ML VIAL ONE (12:30)
[2022-07-18] MEDS ORDERED: Metoclopramide HCl 10 MG/2 ML VIAL ONE (12:30)
[2022-07-18] MEDS ORDERED: SUGAMMADEX SODIUM 200 MG/2 ML VIAL ONE (13:22)
[2022-07-18] MEDS ORDERED: Ondansetron PF 4 MG/2 ML Vial IVP PRN (13:40)
[2022-07-18] MEDS ORDERED: Acetaminophen 325 MG TAB PO PRN (13:40)
[2022-07-18] MEDS ORDERED: PACU-Morphine 4MG/ML VIAL SLOW IVP PRN (13:49)
[2022-07-18] MEDS ORDERED: Promethazine HCl 25 MG/ML VIAL IM PRN (13:49)
[2022-07-18] MEDS ORDERED: HYDROmorphone 2 MG/ML VIAL SLOW IVP PRN (13:49)
[2022-07-18] MEDS ORDERED: Ondansetron HCl/PF 4 MG/2 ML Vial IVP PRN (13:49)
[2022-07-18] MEDS ORDERED: Morphine Sulfate 2 MG/ML SYRINGE SLOW IVP PRN (13:49)
[2022-07-18] MEDS ORDERED: Meperidine HCl/PF 25 MG/ML VIAL SLOW IVP PRN (13:49)
[2022-07-18] MEDS ORDERED: traMADol HCl 50 MG TAB PO PRN (13:50)
[2022-07-18] MEDS ORDERED: Acetaminophen/Codeine 30-300mg Tablet PO PRN (13:50)
[2022-07-18] MEDS ORDERED: guaiFENesin ER 600 MG TAB PO PRN (13:53)
[2022-07-18] MEDS ORDERED: Triamcinolone 0.1% Dental Paste 5 GM TUBE TOP PRN (13:53)
[2022-07-18] MEDS ORDERED: Docusate 100 MG CAP PO PRN (13:53)
[2022-07-18] MEDS ORDERED: Furosemide 20 MG TAB PO PRN (13:53)
[2022-07-18] MEDS ORDERED: CARBOXYMETHYLCELLULOSE SODIUM EA EYE PRN (13:53)
[2022-07-18] MEDS ORDERED: Diclofenac 1% 100 GM GEL TP PRN (13:53)
[2022-07-18] MEDS ORDERED: Loperamide HCl 2 MG CAP PO PRN (13:53)
[2022-07-18] MEDS ORDERED: Calcium Carbonate 500 MG ChewTAB PO PRN (13:53)
[2022-07-18] MEDS ORDERED: hydrALAZINE 20 MG/ML VIAL SLOW IVP PRN (13:59)
[2022-07-18] MEDS ORDERED: fentaNYL 50 mcg/mL 1 mL Vial ONE (14:50)
[2022-07-18] MEDS ORDERED: tiZANidine HCl 4 MG TAB PO PRN ×2 (15:16→17:03)
[2022-07-18] MEDS: Sodium Chloride 0.9% 1,000 ML IV SCH (15:27)
[2022-07-18] MEDS ORDERED: Methocarbamol 500 MG TAB PO PRN (15:43)
[2022-07-18] MEDS ORDERED: EPINEPHRINE 0.3 MG/0.3 ML IM PRN (16:12)
[2022-07-18] MEDS ORDERED: AUTO INJCT IM PRN (16:12)
[2022-07-18] MEDS ORDERED: Artificial Tear Sol 15 ML BOT EA EYE PRN (16:19)
[2022-07-18] MEDS ORDERED: Polyethylene Glycol OPTH DROP 15 ML BOT EA EYE SCH (16:30)
[2022-07-18] MEDS: HYDROcodone/Acetaminophen 10/325 mg Tablet PO PRN (17:48)
[2022-07-18] MEDS: Morphine 2 MG/ML VIAL SLOW IVP PRN ×2 (17:49→20:59)
[2022-07-18] MEDS: Metamucil PACK PO SCH (20:55)
[2022-07-18] MEDS ORDERED: Gabapentin 400 MG CAP PO SCH (21:00)
[2022-07-18] MEDS ORDERED: Atorvastatin Calcium 10 MG TAB PO SCH (21:00)
[2022-07-18] MEDS ORDERED: Estradiol 1 MG TAB PO SCH (21:00)
[2022-07-18] MEDS ORDERED: Multivit, Therapeutic 1 TAB PO SCH (21:00)
[2022-07-18] MEDS: Clindamycin/D5W 900 MG in Premix Bag 1 BAG IVPB SCH (21:18)
[2022-07-19] MEDS: Sodium Chloride 0.9% 1,000 ML IV SCH (03:00)
[2022-07-19] MEDS: Clindamycin/D5W 900 MG in Premix Bag 1 BAG IVPB SCH (05:44)
[2022-07-19] MEDS ORDERED: Levothyroxine Sodium 75 MCG TAB PO SCH (06:00)
[2022-07-19 06:29] LABS: #Lymphocytes 2.7 thou/uL (1.20-3.40); #Monocytes 0.7 thou/uL (0.11-0.59); #Neutrophils 8.4 thou/uL (1.40-6.50); %Basophils 0.1 % (0.0-1.0); %Eosinophils 0.3 % (0.0-10.0); %Lymphocytes 23.2 % (21.0-51.0); %Monocytes 5.6 % (0.0-10.0); %Neutrophils 70.8 % (42.0-75.0); Anion Gap 12 mmol/L (10-20); BUN (Urea Nitrogen) 15 mg/dL (9.8-20.1); Calc. Creatinine Clearance 61 mL/min (70-130); Calcium 8.7 mg/dL (7.8-10.44); Carbon Dioxide 23 mmol/L (23-31); Chloride 104 mmol/L (98-107); Estimated GFR 87; Glucose 90 mg/dL (83-110); Hemoglobin 12.7 g/dL (12.0-16.0); Mean Corpuscular HGB CONC 34.1 g/dL (32.0-36.0); Mean Corpuscular Hemoglobin 37.3 pg (27.0-31.0); Mean Platelet Volume 6.7 fL (7.4-10.4); Platelet Count 181 10x3/uL (130-400); RBC Distribution Width 12.4 % (11.5-14.5); Red Blood Cell (RBC) Count 3.42 mill/uL (4.20-5.40); Sodium 135 mmol/L (136-145); White Blood Cell (WBC) Count 11.8 10x3/uL (4.8-10.8)
[2022-07-19] MEDS: HYDROcodone/Acetaminophen 10/325 mg Tablet PO PRN (06:53)
[2022-07-19 08:32] VITALS: BP 131/75; TEMP 98.3
[2022-07-19] MEDS: Metamucil PACK PO SCH (08:55)
[2022-07-19] MEDS ORDERED: prednisoLONE 15 MG/5 ML UDCUP PO SCH ×2 (09:00)
[2022-07-19] MEDS ORDERED: Folic Acid 1 MG TAB PO SCH (09:00)
[2022-07-19] MEDS ORDERED: METRONIDAZOLE TOP SCH (09:00)
[2022-07-19] MEDS ORDERED: Multivitamin W/ Minerals 1 TAB PO SCH (09:00)
[2022-07-19] MEDS ORDERED: Nebivolol HCl 5 MG TAB PO SCH (09:00)
[2022-07-19] MEDS ORDERED: Lisinopril/Hydrochlorothiazide 20/25 mg Tablet PO SCH (09:00)
[2022-07-19] MEDS ORDERED: Cholecalciferol 1,000 UNITS (25 MCG) TAB PO SCH (09:00)
[2022-07-19] MEDS ORDERED: Calcium Carbonate 600 MG + Vit D TAB PO SCH (09:00)
[2022-07-19] MEDS ORDERED: FLAXSEED OIL 1000 MG PO SCH (09:00)
[2022-07-19] MEDS ORDERED: Potassium Chloride 20 MEQ TAB PO SCH (09:00)
[2022-07-19] MEDS ORDERED: Ascorbic Acid 500 mg Chewable Tablet PO SCH (09:00)
[2022-07-19] MEDS ORDERED: Floranex 1 GM Packet PO SCH (09:00)
[2022-07-19] MEDS ORDERED: FLUoxetine HCl 20 MG CAP PO SCH (09:00)
[2022-07-19] MEDS ORDERED: [UNRECOGNIZED DRUG - OTHER] TOP SCH (09:00)
[2022-07-19] MEDS ORDERED: Cyanocobalamin (Vitamin B-12) 1,000 MCG TAB PO SCH (09:00)
[2022-07-21] MEDS ORDERED: FERROUS BIS GLYCINATE CHELATE PO SCH (09:00)
== END 2022-07-19 12:44 | disposition home or self-care (01) ==
LOC: SDC 08:20 → T4-B 15:04 → SDC 21:50 → T4-B 21:51
PROVIDERS: ADMIT Surgery; ATTEND Surgery
PROC: 0SB20ZZ Excision of Lumbar Vertebral Disc, Open Approach (ICD-10-PCS; principal; 2022-07-18)
DX: M51.16 Intervertebral disc disorders with radiculopathy, lumbar region (principal); M48.061 Spinal stenosis, lumbar region without neurogenic claudication; G47.33 Obstructive sleep apnea (adult) (pediatric); I10 Essential (primary) hypertension; E03.9 Hypothyroidism, unspecified; K21.9 Gastro-esophageal reflux disease without esophagitis; M35.00 Sjogren syndrome, unspecified; F17.210 Nicotine dependence, cigarettes, uncomplicated; Z79.52 Long term (current) use of systemic steroids; Z79.620 Long term (current) use of immunosuppressive biologic; Z79.899 Other long term (current) drug therapy; Z88.0 Allergy status to penicillin; Z88.2 Allergy status to sulfonamides; Z88.8 Allergy status to other drugs, medicaments and biological substances; Z96.82 Presence of neurostimulator; Z98.1 Arthrodesis status
CPT/HCPCS: 63047; 80048; 85025; 96374; C1889; G0378 ×2; J3010; 36415; J1100; J1170; J1956; J2250; J2272; J2405; J2704; J2765; J3370; J3490; J7050; S0028

== ENCOUNTER 2022-09-19 13:43 | Inpatient (IN) | payer MEDICARE, BC ==
[2022-09-19 14:14] LABS: #Eosinphils 0.1 thou/uL (0.0-0.7); #Monocytes 1.1 thou/uL (0.11-0.59); #Neutrophils 7.3 thou/uL (1.40-6.50); %Basophils 0.3 % (0.0-1.0); %Eosinophils 0.5 % (0.0-10.0); %Lymphocytes 27.7 % (21.0-51.0); %Monocytes 9.1 % (0.0-10.0); %Neutrophils 61.5 % (42.0-75.0); Hemoglobin 16.7 g/dL (12.0-16.0); Mean Corpuscular HGB CONC 34.2 g/dL (32.0-36.0); Mean Corpuscular Hemoglobin 34.2 pg (27.0-31.0); Mean Corpuscular Volume 100.2 fl (78.0-98.0); Mean Platelet Volume 8.8 fL (7.4-10.4); Platelet Count 399 10x3/uL (130-400); RBC Distribution Width 13.2 % (11.5-14.5); Red Blood Cell (RBC) Count 4.88 mill/uL (4.20-5.40); White Blood Cell (WBC) Count 11.8 10x3/uL (4.8-10.8)
[2022-09-19 14:32] LABS: Bacteria/HPF None Seen HPF (None Seen); Bilirubin Negative (Negative); Blood, Urine Negative (Negative); CAUTI Indications for Culture Alt mental st,lethar; Clarity Clear (Clear); Glucose, Urine (Dipstick) Normal (Negative); Ketone, Urine Greater than 150 mg/dL (Negative); Leukocyte Negative Leu/uL (Negative); Mucous/LPF Rare LPF (<2+); Nitrite Negative (Negative); Protein, Urine (Dipstick) 100 mg/dL (Neg-Trace); Specific Gravity, Urine 1.024 (1.002-1.036); Squamous Epithelial None Seen HPF (0-3); WBC/HPF 0-3 HPF (0-3)
[2022-09-19 14:35] LABS: ALT (SGPT) 18 U/L (8-55); AST (SGOT) 24 U/L (5-34); Albumin 4.2 g/dL (3.4-4.8); Alkaline Phosphatase 58 U/L (40-110); Anion Gap 25 mmol/L (10-20); BUN (Urea Nitrogen) 22 mg/dL (9.8-20.1); Bilirubin, Total 0.6 mg/dL (0.2-1.2); CK (CPK) 61 U/L (29-168); Calc. Creatinine Clearance 0 mL/min (70-130); Calcium 11.5 mg/dL (7.8-10.44); Carbon Dioxide 23 mmol/L (23-31); Chloride 93 mmol/L (98-107); Estimated GFR 79; Globulin 3.8 g/dL (2.4-3.5); Glucose 104 mg/dL (83-110); Potassium 3.7 mmol/L (3.5-5.1); Sodium 137 mmol/L (136-145)
[2022-09-19 14:46] LABS: RBC/HPF 0-3 HPF (0-3)
[2022-09-19 14:47] LABS: Urine Culture Reflex No No
[2022-09-19] MEDS ORDERED: Acetaminophen 500 MG TAB ONE (14:58)
[2022-09-19] MEDS ORDERED: Cefepime 2 GM VIAL ONE (17:00)
[2022-09-19] MEDS ORDERED: Acetaminophen 325 MG TAB PO PRN (17:15)
[2022-09-19] MEDS ORDERED: VANCOMYCIN 1.75 GM/500 ML BAG 1.75 GM in Premix Bag 1 BAG IVPB SCH (17:45)
[2022-09-19 17:51] LABS: Lipase 4 U/L (8-78); Magnesium 1.7 mg/dL (1.6-2.6)
[2022-09-19 18:25] LABS: CKMB 5.2 ng/mL (0-6.6)
[2022-09-19 20:49] LABS: Lactic Acid 1.1 mmol/L (0.5-2.2)
[2022-09-19] MEDS: Gabapentin 400 MG CAP PO SCH (20:55)
[2022-09-19] MEDS: Famotidine 20 MG TAB PO SCH (20:56)
[2022-09-19] MEDS: HYDROcodone/Acetaminophen 5/325 mg Tablet PO PRN (20:59)
[2022-09-19] MEDS: Sodium Chloride 0.9% 1,000 ML IV SCH (21:00)
[2022-09-19] MEDS ORDERED: Piperacillin/Tazobactam 3.375 GM in Sodium Chloride 0.9% 100 ML IVPB SCH (21:00)
[2022-09-19 23:18] VITALS: BMI 23.3
[2022-09-20] MEDS: Piperacillin/Tazobactam 3.375 GM in Sodium Chloride 0.9% 100 ML IVPB SCH ×3 (01:03→20:27)
[2022-09-20 05:37] LABS: #Basophils 0.1 thou/uL (0.0-0.2); #Eosinphils 0.3 thou/uL (0.0-0.7); #Monocytes 1.2 thou/uL (0.11-0.59); %Basophils 0.7 % (0.0-1.0); %Eosinophils 2.6 % (0.0-10.0); %Lymphocytes 28.8 % (21.0-51.0); %Monocytes 10.8 % (0.0-10.0); Mean Corpuscular HGB CONC 34.4 g/dL (32.0-36.0); Mean Corpuscular Hemoglobin 34.5 pg (27.0-31.0); Mean Corpuscular Volume 100.3 fl (78.0-98.0); Mean Platelet Volume 8.7 fL (7.4-10.4); Platelet Count 306 10x3/uL (130-400); RBC Distribution Width 13.4 % (11.5-14.5); Red Blood Cell (RBC) Count 3.86 mill/uL (4.20-5.40); White Blood Cell (WBC) Count 10.7 10x3/uL (4.8-10.8)
[2022-09-20 05:48] LABS: Hemoglobin 13.3 g/dL (12.0-16.0)
[2022-09-20 06:10] LABS: Anion Gap 15 mmol/L (10-20); BUN (Urea Nitrogen) 21 mg/dL (9.8-20.1); Calc. Creatinine Clearance 65 mL/min (70-130); Carbon Dioxide 21 mmol/L (23-31); Chloride 106 mmol/L (98-107); Estimated GFR 90; Glucose 81 mg/dL (83-110); Potassium 3.1 mmol/L (3.5-5.1); Sodium 139 mmol/L (136-145)
[2022-09-20] MEDS ORDERED: Polyvinyl Alcohol 1.4%/Povidone 0.6% Opth Drops EA EYE PRN (07:52)
[2022-09-20] MEDS ORDERED: GenTeal Tears Severe Dry Eye GEL 10 GM EA EYE PRN (08:00)
[2022-09-20] MEDS: Gabapentin 400 MG CAP PO SCH ×3 (09:50→20:28)
[2022-09-20] MEDS: Calcium Carbonate 600 MG + Vit D TAB PO SCH ×3 (09:51→20:28)
[2022-09-20] MEDS: HYDROcodone/Acetaminophen 5/325 mg Tablet PO PRN (09:51)
[2022-09-20] MEDS: predniSONE 20 MG TAB PO SCH (09:52)
[2022-09-20] MEDS: Fish Oil 1,000 MG CAP PO SCH (09:52)
[2022-09-20] MEDS: Famotidine 20 MG TAB PO SCH ×2 (09:52→20:29)
[2022-09-20] MEDS: Folic Acid 1 MG TAB PO SCH (09:52)
[2022-09-20] MEDS: FLUoxetine HCl 20 MG CAP PO SCH (09:52)
[2022-09-20] MEDS: Saccharomyces boulardii 250 MG CAP PO SCH (09:52)
[2022-09-20] MEDS: Nebivolol HCl 5 MG TAB PO SCH (09:52)
[2022-09-20] MEDS ORDERED: Magnesium Sulfate In Water 4 GM in Premix Bag 1 BAG IVPB SCH (15:00)
[2022-09-20] MEDS ORDERED: Potassium Chloride 20 MEQ TAB PO SCH (15:00)
[2022-09-20] MEDS: HYDROcodone/Acetaminophen 5/325 mg Tablet PO SCH ×2 (15:27→22:00)
[2022-09-20] MEDS: Methocarbamol 500 MG TAB PO PRN (17:20)
[2022-09-20] MEDS: Sodium Chloride 0.9% 1,000 ML IV SCH (18:42)
[2022-09-20] MEDS: Estradiol 1 MG TAB PO SCH (20:28)
[2022-09-21] MEDS: Piperacillin/Tazobactam 3.375 GM in Sodium Chloride 0.9% 100 ML IVPB SCH ×3 (01:05→17:42)
[2022-09-21 05:09] LABS: #Basophils 0.1 thou/uL (0.0-0.2); #Eosinphils 0.4 thou/uL (0.0-0.7); #Monocytes 0.7 thou/uL (0.11-0.59); #Neutrophils 4.3 thou/uL (1.40-6.50); %Basophils 0.8 % (0.0-1.0); %Eosinophils 4.4 % (0.0-10.0); %Lymphocytes 39.8 % (21.0-51.0); %Monocytes 7.8 % (0.0-10.0); %Neutrophils 46.1 % (42.0-75.0); Mean Corpuscular HGB CONC 33.4 g/dL (32.0-36.0); Mean Corpuscular Hemoglobin 34.8 pg (27.0-31.0); Mean Platelet Volume 8.8 fL (7.4-10.4); Platelet Count 276 10x3/uL (130-400); RBC Distribution Width 13.3 % (11.5-14.5); Red Blood Cell (RBC) Count 3.45 mill/uL (4.20-5.40); White Blood Cell (WBC) Count 9.3 10x3/uL (4.8-10.8)
[2022-09-21 05:35] LABS: Mean Corpuscular Volume 104.1 fl (78.0-98.0)
[2022-09-21 05:38] LABS: Anion Gap 12 mmol/L (10-20); BUN (Urea Nitrogen) 18 mg/dL (9.8-20.1); Calc. Creatinine Clearance 57 mL/min (70-130); Calcium 8.9 mg/dL (7.8-10.44); Carbon Dioxide 25 mmol/L (23-31); Chloride 108 mmol/L (98-107); Estimated GFR 83; Glucose 80 mg/dL (83-110); Potassium 3.9 mmol/L (3.5-5.1); Sodium 141 mmol/L (136-145)
[2022-09-21] MEDS: HYDROcodone/Acetaminophen 5/325 mg Tablet PO SCH ×3 (05:49→20:35)
[2022-09-21] MEDS: Famotidine 20 MG TAB PO SCH ×2 (08:33→20:34)
[2022-09-21] MEDS: FLUoxetine HCl 20 MG CAP PO SCH (08:33)
[2022-09-21] MEDS: Saccharomyces boulardii 250 MG CAP PO SCH (08:33)
[2022-09-21] MEDS: Fish Oil 1,000 MG CAP PO SCH (08:33)
[2022-09-21] MEDS: predniSONE 20 MG TAB PO SCH (08:33)
[2022-09-21] MEDS: Folic Acid 1 MG TAB PO SCH (08:33)
[2022-09-21] MEDS: Nebivolol HCl 5 MG TAB PO SCH (08:33)
[2022-09-21] MEDS: Gabapentin 400 MG CAP PO SCH ×3 (08:33→20:33)
[2022-09-21] MEDS: Calcium Carbonate 600 MG + Vit D TAB PO SCH ×3 (08:34→20:33)
[2022-09-21] MEDS: FLAXSEED OIL 1000 MG PO SCH ×2 (15:50→19:03)
[2022-09-21] MEDS: Estradiol 1 MG TAB PO SCH (20:34)
[2022-09-21] MEDS: guaiFENesin ER 600 MG TAB PO SCH (20:35)
[2022-09-22] MEDS: Piperacillin/Tazobactam 3.375 GM in Sodium Chloride 0.9% 100 ML IVPB SCH ×3 (00:35→17:11)
[2022-09-22] MEDS: HYDROcodone/Acetaminophen 5/325 mg Tablet PO SCH ×3 (05:09→20:59)
[2022-09-22] MEDS ORDERED: FERROUS BIS GLYCINATE CHELATE PO SCH (09:00)
[2022-09-22] MEDS ORDERED: Vancomycin 1 GM VIAL ONE (11:06)
[2022-09-22] MEDS ORDERED: Hydrocortisone Sod Succ/PF 100 mg/2 ml Vial ONE (11:06)
[2022-09-22] MEDS ORDERED: fentaNYL PF 100 MCG/2 ML SYRINGE ONE (11:06)
[2022-09-22] MEDS ORDERED: Dexamethasone 20 MG/5 ML VIAL ONE (12:04)
[2022-09-22] MEDS ORDERED: PROPOFOL 200 MG/20 ML VIAL ONE (12:04)
[2022-09-22] MEDS ORDERED: Ondansetron PF 4 MG/2 ML Vial ONE (12:04)
[2022-09-22] MEDS ORDERED: Lidocaine 1% PF 5 ML VIAL ONE (12:04)
[2022-09-22] MEDS ORDERED: Rocuronium Bromide 10 MG/ML (10ML VIAL) ONE (12:04)
[2022-09-22] MEDS ORDERED: Morphine 2 MG/ML VIAL SLOW IVP PRN (12:35)
[2022-09-22] MEDS ORDERED: HYDROmorphone 2 MG/ML VIAL ONE (12:51)
[2022-09-22] MEDS: guaiFENesin ER 600 MG TAB PO SCH ×2 (13:19→20:59)
[2022-09-22] MEDS: Fish Oil 1,000 MG CAP PO SCH (13:19)
[2022-09-22] MEDS: Gabapentin 400 MG CAP PO SCH ×3 (13:19→20:58)
[2022-09-22] MEDS: Famotidine 20 MG TAB PO SCH ×2 (13:19→20:59)
[2022-09-22] MEDS: Calcium Carbonate 600 MG + Vit D TAB PO SCH ×3 (13:19→20:58)
[2022-09-22] MEDS: FLUoxetine HCl 20 MG CAP PO SCH (13:19)
[2022-09-22] MEDS: Folic Acid 1 MG TAB PO SCH (13:19)
[2022-09-22] MEDS: Nebivolol HCl 5 MG TAB PO SCH (13:20)
[2022-09-22] MEDS: Saccharomyces boulardii 250 MG CAP PO SCH (13:20)
[2022-09-22] MEDS: predniSONE 20 MG TAB PO SCH (13:27)
[2022-09-22] MEDS: Estradiol 1 MG TAB PO SCH (20:59)
[2022-09-23] MEDS: Piperacillin/Tazobactam 3.375 GM in Sodium Chloride 0.9% 100 ML IVPB SCH ×2 (00:09→09:05)
[2022-09-23] MEDS: HYDROcodone/Acetaminophen 5/325 mg Tablet PO SCH (05:56)
[2022-09-23] MEDS ORDERED: Morphine 2 MG/ML VIAL SLOW IVP PRN (08:46)
[2022-09-23] MEDS ORDERED: Acetaminophen/Codeine 30-300mg Tablet PO PRN (08:46)
[2022-09-23] MEDS ORDERED: Loperamide HCl 2 MG CAP PO PRN (08:52)
[2022-09-23] MEDS ORDERED: hydrALAZINE 20 MG/ML VIAL SLOW IVP PRN (09:04)
[2022-09-23] MEDS: Nebivolol HCl 5 MG TAB PO SCH (09:05)
[2022-09-23] MEDS: predniSONE 5 MG TAB PO SCH (09:06)
[2022-09-23] MEDS: guaiFENesin ER 600 MG TAB PO SCH ×2 (09:06→20:29)
[2022-09-23] MEDS: Calcium Carbonate 600 MG + Vit D TAB PO SCH ×3 (09:06→20:30)
[2022-09-23] MEDS: Fish Oil 1,000 MG CAP PO SCH (09:06)
[2022-09-23] MEDS: Gabapentin 400 MG CAP PO SCH ×3 (09:06→20:29)
[2022-09-23] MEDS: FLUoxetine HCl 20 MG CAP PO SCH (09:06)
[2022-09-23] MEDS: Saccharomyces boulardii 250 MG CAP PO SCH (09:06)
[2022-09-23] MEDS: Folic Acid 1 MG TAB PO SCH (09:06)
[2022-09-23] MEDS: Lisinopril/Hydrochlorothiazide 20/25 mg Tablet PO SCH (09:20)
[2022-09-23] MEDS: HYDROcodone/Acetaminophen 10/325 mg Tablet PO PRN ×4 (09:20→22:29)
[2022-09-23 10:18] LABS: Hemoglobin 12.3 g/dL (12.0-16.0); Mean Corpuscular HGB CONC 31.7 g/dL (32.0-36.0); Mean Corpuscular Hemoglobin 34.6 pg (27.0-31.0); Mean Corpuscular Volume 109.3 fl (78.0-98.0); Mean Platelet Volume 8.9 fL (7.4-10.4); Platelet Count 244 10x3/uL (130-400); RBC Distribution Width 13.2 % (11.5-14.5); Red Blood Cell (RBC) Count 3.55 mill/uL (4.20-5.40); White Blood Cell (WBC) Count 13.4 10x3/uL (4.8-10.8)
[2022-09-23 10:24] LABS: Delete Auto Diff?? YES; Manual Diff?? YES
[2022-09-23 10:40] LABS: Anion Gap 13 mmol/L (10-20); BUN (Urea Nitrogen) 8 mg/dL (9.8-20.1); Calc. Creatinine Clearance 60 mL/min (70-130); Calcium 9.1 mg/dL (7.8-10.44); Carbon Dioxide 26 mmol/L (23-31); Chloride 104 mmol/L (98-107); Estimated GFR 87; Glucose 104 mg/dL (83-110); Sodium 140 mmol/L (136-145)
[2022-09-23 10:48] LABS: Anisocytosis SLIGHT = 6-15 cells HPF (0-5); Band 4 % (5-11); Burr Cells SLIGHT = 2-5 cells HPF (0-1); Eosinophils 2 % (0-10); Lymphocytes 31 % (21-51); Macrocytosis SLIGHT = 6-15 cells HPF (0-5); Monocytes 3 % (0-10); Neutrophil 61 % (42-75); Platelet Adequacy Comment Platelets Normal; Polychromasia SLIGHT = 2-3 cells HPF (0-2); Total Cell Count 116
[2022-09-23] MEDS ORDERED: LevoFLOXacin 750 mg/D5W 750 MG in Premix Bag 1 BAG IVPB SCH (15:45)
[2022-09-23] MEDS: Methocarbamol 500 MG TAB PO PRN (17:09)
[2022-09-23] MEDS: Estradiol 1 MG TAB PO SCH (20:29)
[2022-09-23] MEDS ORDERED: Atorvastatin Calcium 10 MG TAB PO SCH (21:00)
[2022-09-23] MEDS ORDERED: Simvastatin 20 MG TAB PO SCH (21:00)
[2022-09-24] MEDS: HYDROcodone/Acetaminophen 10/325 mg Tablet PO PRN ×3 (04:57→13:19)
[2022-09-24] MEDS ORDERED: Levothyroxine Sodium 75 MCG TAB PO SCH (06:00)
[2022-09-24 07:35] LABS: #Basophils 0.1 thou/uL (0.0-0.2); #Eosinphils 0.3 thou/uL (0.0-0.7); #Monocytes 0.9 thou/uL (0.11-0.59); #Neutrophils 5.2 thou/uL (1.40-6.50); %Basophils 0.5 % (0.0-1.0); %Eosinophils 3.1 % (0.0-10.0); %Lymphocytes 37.7 % (21.0-51.0); %Monocytes 8.4 % (0.0-10.0); %Neutrophils 49.5 % (42.0-75.0); Hemoglobin 12.2 g/dL (12.0-16.0); Mean Corpuscular HGB CONC 33.3 g/dL (32.0-36.0); Mean Corpuscular Hemoglobin 34.1 pg (27.0-31.0); Mean Platelet Volume 8.9 fL (7.4-10.4); Platelet Count 257 10x3/uL (130-400); RBC Distribution Width 12.8 % (11.5-14.5); Red Blood Cell (RBC) Count 3.58 mill/uL (4.20-5.40); White Blood Cell (WBC) Count 10.4 10x3/uL (4.8-10.8)
[2022-09-24 07:57] LABS: Mean Corpuscular Volume 102.2 fl (78.0-98.0)
[2022-09-24] MEDS: Nebivolol HCl 5 MG TAB PO SCH (08:05)
[2022-09-24] MEDS: Lisinopril/Hydrochlorothiazide 20/25 mg Tablet PO SCH (08:05)
[2022-09-24] MEDS: Gabapentin 400 MG CAP PO SCH ×2 (08:05→14:34)
[2022-09-24] MEDS: Calcium Carbonate 600 MG + Vit D TAB PO SCH ×2 (08:06→14:34)
[2022-09-24] MEDS: predniSONE 5 MG TAB PO SCH (08:06)
[2022-09-24] MEDS: guaiFENesin ER 600 MG TAB PO SCH (08:06)
[2022-09-24] MEDS: Folic Acid 1 MG TAB PO SCH (08:06)
[2022-09-24] MEDS: FLUoxetine HCl 20 MG CAP PO SCH (08:06)
[2022-09-24] MEDS: Saccharomyces boulardii 250 MG CAP PO SCH (08:06)
[2022-09-24] MEDS ORDERED: Multivitamin W/ Minerals 1 TAB PO SCH (09:00)
[2022-09-24] MEDS ORDERED: LevoFLOXacin 750 mg/D5W 750 MG in Premix Bag 1 BAG IVPB SCH (16:00)
[2022-09-24 17:44] VITALS: BP 138/77; TEMP 98.4
== END 2022-09-24 17:35 | disposition home or self-care (01) | DRG 856 ==
LOC: ERS 13:43 → 2NO 17:05 → T4-A 09-21 10:26
PROVIDERS: ADMIT Hospitalist; ATTEND Internal Medicine Geriatric Medicine
PROC: 3E03329 Introduction of Other Anti-infective into Peripheral Vein, Percutaneous Approach (ICD-10-PCS; 2022-09-19)
PROC: 00PV0MZ Removal of Neurostimulator Lead from Spinal Cord, Open Approach (ICD-10-PCS; principal; 2022-09-22)
PROC: 0JPT0MZ Removal of Stimulator Generator from Trunk Subcutaneous Tissue and Fascia, Open Approach (ICD-10-PCS; 2022-09-22)
DX: T81.49XA Infection following a procedure, other surgical site, initial encounter (principal); A41.9 Sepsis, unspecified organism; G93.41 Metabolic encephalopathy; E87.20 Acidosis, unspecified; N39.0 Urinary tract infection, site not specified; I10 Essential (primary) hypertension; M06.9 Rheumatoid arthritis, unspecified; M45.9 Ankylosing spondylitis of unspecified sites in spine; M54.9 Dorsalgia, unspecified; E86.0 Dehydration; G89.29 Other chronic pain; E83.42 Hypomagnesemia; E87.6 Hypokalemia; E78.5 Hyperlipidemia, unspecified; Y83.8 Other surgical procedures as the cause of abnormal reaction of the patient, or of later complication, without mention of misadventure at the time of the procedure; Z88.1 Allergy status to other antibiotic agents; Z88.8 Allergy status to other drugs, medicaments and biological substances; Z79.899 Other long term (current) drug therapy; Z88.2 Allergy status to sulfonamides
CPT/HCPCS: 36415; 36416; 51701; 71045; 72158; 72170; 80048; 80053; 81001; 82550; 82553; 83605; 83690; 83735; 84134; 84443; 84484; 85025; 85652; 86140; 87040; 87070; 87086; 87205; 93005; 93970; 96361; 96365; 96375; C1713; J0692; J1100; J1170; J1650; J1720; J1956; J2405; J2543; J2704; J3370; J3475; J3490; J7050; J7512

== ENCOUNTER 2023-01-20 10:55 | Outpatient (CLI) | payer MEDICARE, BC ==
[2023-01-20] MEDS ORDERED: Magnevist 469MG/ML 20 ML VIAL ONE (13:58)
== END 2023-01-20 10:56 | disposition home or self-care (01) ==
LOC: MRI 10:55
PROVIDERS: ATTEND Nurse Practitioner Family
DX: M96.1 Postlaminectomy syndrome, not elsewhere classified (principal); M51.26 Other intervertebral disc displacement, lumbar region; M48.061 Spinal stenosis, lumbar region without neurogenic claudication; M47.816 Spondylosis without myelopathy or radiculopathy, lumbar region; Z98.890 Other specified postprocedural states
CPT/HCPCS: 72158; 82565

== ENCOUNTER 2023-08-18 12:55 | Outpatient (CLI) | payer MEDICARE | END 2023-08-18 12:56 | disposition home or self-care (01) | LOC: MRI 12:55 | PROVIDERS: ATTEND Nurse Practitioner Family | DX: M96.1 Postlaminectomy syndrome, not elsewhere classified (principal); Z98.890 Other specified postprocedural states | CPT/HCPCS: 72148 ==